=== PATIENT | female | born 1960 | race Caucasian/White ===

== ENCOUNTER 2025-07-29 09:54 | Outpatient (REF) | payer OTHER, SELFPAY ==
--- NOTE | 2025-07-29 | EMG_ITS ---
Chief complaint: Pain, numbness and itchy Referred by:?Loren Olson MD Procedure done: Left upper extremity NCS/EMG Left median and ulnar motor studies were performed with F responses. Left median and ulnar mixed sensory studies, ortho digit sensory studies and radial sensory study was performed. Paraspinals were tested with a needle. Findings: Left median motor distal latencies was mildly prolonged. Left median mixed distal latencies was moderately prolonged with moderate slowing of conduction velocity. Impression: [id number] left median neuropathy across carpal tunnel [place] [id number] 1 extremity MTDD
--- OUTSIDE RECORDS SUMMARY | 2025-07-29 11:10 | XMS_ITS | Data Portability ---
Author Organization [facility], Main Office Address [address] [place] [address] Care Team Providers Care Soil Sort Worker Name Role Phone GLEN HALEY Primary Care Provider EVIE SERRANO Degreaser Operator PRITESH HERNANDEZ Breast Surgeon Assessment Encounter Date Assessment Date Assessment LastModified by Organization Details LastModified Time 06/17/2025 06/17/2025 This service was provided using [facility] ([facility] The patient consented and was seen through audio only was used due to patient technology challenges. If audio only connection was used, the provider used telephone communication. Patient was located other than home in the [facility]. Provider was located in the office. No other persons participated in the telemedicine visit except for the patient unless otherwise indicated here. Total time of visit was 15 minutes. [email or web address] Not available 06/17/2025 09:04:35 Plan of Treatment Reminders Order Date Submit Date Provider Last Modified By Organization Details Last Modified Time Details Appointments None record ed. Lab HbA1c (hemog lobin A1c), blood 2024 025 [facility], [address] [place], [address], 5 08:07:15 lipid panel, serum 2024 025 [facility], [address], [place], [address], 5 08:07:14 CBC w/ auto diff 2024 025 CH[facility], [address], [place], [address], 5 08:07:12 TSH, ultra- sensit dameon, serum 2024 025 [facility], [address], [place], [address], 08:07:16 CMP, serum or plasma 2024 025 [facility] (Centralized Electronic Ordering - All Locations), Patient Can Go To The Location Of Their Choice, 08:07:13 pro BNP (pro B-type natriu retic peptid e), serum or plasma 2024 025 CHUY [facility] (Centralized Electronic Ordering - All Locations), Patient Can Go To The Location Of Their Choice, 08:07:16 urinal ysis comple te, reflex cultur e 2024 025 CHUY [facility] (Centralized Electronic Ordering - All Locations), Patient Can Go To The Location Of Their Choice, 08:07:13 noninv asive colore ctal cancer DNA + occult blood screen ing, QL, stool 2024 025 [facility], [address], [place], [address], 5 16:58:23 HbA1c (hemog lobin A1c), blood 2023 024 [facility], [address], [place], [address], 4 08:42:34 lipid panel, serum 2023 024 [facility], [address], [place], [address], 4 08:42:33 aspart ate aminot ransfe rase/a lanine aminot ransfe rase, ratio, serum or plasma (OBS) 2023 024 CHUY [facility] (Centralized Electronic Ordering - All Locations), Patient Can Go To The Location Of Their Choice, [id number] 4 06:08:46 BMP, serum or plasma 2023 024 [facility], [address], [place], [address], 4 06:08:45 CBC w/ auto diff 2023 024 [facility], [address], [place], [address], 4 06:08:44 TSH, ultra- sensit dameon, serum 2023 024 [facility], [address], [place], [address], 4 08:42:34 noninv asive colore ctal cancer DNA + occult blood screen ing, QL, stool 2023 024 [facility], [address], [address], [place], [address], 4 08:49:36 Referral occupa tional therap ist referr al 2024 Martha vargas Not available 5 13:47:03 sleep medici ne referr al 2024 025 [facility], [address] [place] [address], [address], 5 12:00:18 sleep medici ne referr al 2022 023 [facility], [address] [place] [address], [address], 3 12:09:19 Procedures None record ed. Surgeries None record ed. Imaging electr omyogr am + nerve conduc tion study - Left Hand 2024 025 [facility], [address] [place], [address], 5 15:01:01 XR, wrist, 3 or more view 2024 025 [facility], [address] [place] [address], [address], 5 16:26:46 CT, chest, w/ contra st - interv al follow up. pls try to do with Ct abdome n pelvis 2023 024 [facility], [address] [place] [address], [address], 4 13:52:48 CT, abdome n + pelvis , w/ contra st 2023 024 [facility], [address] [place] [address], [address], 4 14:07:59 Medication Orders meloxi cam 15 mg tablet [address] [id number], [phone] [place], [address], 5 05:01:42 meloxi cam 15 mg tablet [address] [facility] #[id number], [phone] [place], [address], 5 05:01:42 simvas tatin 20 mg tablet 2023 024 [facility], [facility], [place], [address], 4 13:57:54 azelas kristan 0.05 % eye drops 2022 023 [id number], [phone] [place], [address], 13:25:09 Patient TargetsNo targets recorded. Patient Instructions Encounter Date Encounter Id Patient Instructions Last Modified By Organization Details Last Modified Time 03/26/2024 [id number] snoring: care instructions [email or web address] Not available 03/26/2024 13:55:21 Colorectal Cance r Screening: Care Instructions ckokar Not available 03/26/2024 13:55:21 03/27/2025 [id number] leg and ankle edema: care instructions [email or web address] Not available 03/27/2025 10:54:46 snoring: care instructions ckokar Not available 03/27/2025 10:54:47 Colorectal Cance r Screening: Care Instructions ckokar Not available 03/27/2025 10:54:47 04/17/2025 [id number] carpal tunnel syndrome: care instructions ckokar Not available 04/17/2025 13:12:10 carpal tunnel syndrome: exercises ckokar Not available 04/17/2025 13:12:10 leg and ankle edema: care instructions ckokar Not available 04/17/2025 13:12:10 Reason for Referral Sleep Medicine Referral for Snoring Referring Physician: Haley Olson [facility] Medicine, Encounter Date: 04/06/2023 Sleep Medicine Referral for Snoring Referring Physician: Haley Olson [facility], Encounter Date: 03/27/2025 Occupational Therapist Refer ral for Carpal tunnel syndrome of left wrist Referring Physician: Haley Olson [facility] Medicine, Encounter Date: 04/17/2025 Results Created Date Observation Date Name Description Value Unit Range Abnormal Flag Note LastModifiedBy Organization Detail LastModifiedTime 03/26/2003/26/2025 COLOG UARD cologuard result Cancel led - Order d not applic able Not Available [facility] [address], [place], [address], 03/26/2025 05:24:35 01/03/20 24 01/03/2024 COLOG UARD cologuard result Cancel led - Order d not applic able Not Available [facility] [address], [place], [address], 01/03/2024 12:05:27 03/29/2003/29/2023 BASIC METAB OLIC PANEL glucose 141 mg/dL (70-99 ) high Not Available [facility] (Centralized Electronic Ordering - All Locations) Patient Can Go To The Location Of Their Choice, 03/29/2023 12:04:03/29/2003/29/2023 BASIC METAB OLIC PANEL BUN 13 mg/dL (8-23) Not Available [facility] (Centralized Electronic Ordering - All Locations) Patient Can Go To The Location Of Their Choice, 03/29/2023 12:04:03/29/2003/29/2023 BASIC METAB OLIC PANEL creatinine 0.8 mg/dL (0.5-1 .0) Not Available [facility] (Centralized Electronic Ordering - All Locations) Patient Can Go To The Location Of Their Choice, 03/29/2023 12:04:03/29/2003/29/2023 BASIC METAB OLIC PANEL sodium 142 mmol/ L (133-1 45) Not Available [facility] (Centralized Electronic Ordering - All Locations) Patient Can Go To The Location Of Their Choice, 03/29/2023 12:04:03/29/2003/29/2023 BASIC METAB OLIC PANEL potassium 4.5 mmol/ L (3.6-5 .2) Not Available [facility] (Centralized Electronic Ordering - All Locations) Patient Can Go To The Location Of Their Choice, 03/29/2023 12:04:03/29/2003/29/2023 BASIC METAB OLIC PANEL chloride 106 mmol/ L (98-10 7) Not Available [facility] (Centralized Electronic Ordering - All Locations) Patient Can Go To The Location Of Their Choice, 03/29/2023 12:04:03/29/2003/29/2023 BASIC METAB OLIC PANEL bicarbonate 24 mmol/ L (22-29 ) Not Available [facility] (Centralized Electronic Ordering - All Locations) Patient Can Go To The Location Of Their Choice, 03/29/2023 12:04:04 03/29/2003/29/2023 BASIC METAB OLIC PANEL anion gap 12 (4-17) Not Available [facility] (Centralized Electronic Ordering - All Locations) Patient Can Go To The Location Of Their Choice, 03/29/2023 12:04:04 03/29/2003/29/2023 BASIC METAB OLIC PANEL calcium 9.5 mg/dL (8.6-1 0.5) Not Available [facility] (Centralized Electronic Ordering - All Locations) Patient Can Go To The Location Of Their Choice, 03/29/2023 12:04:04 03/29/2003/29/2023 BASIC METAB OLIC PANEL estimated GFR creatinine 78 mL/mi n/1.7 3_M2 Creat inine based estim ated glome rular filtr ation (eGFR ) in adult s is calcu lated using the Natio nal Kidne y Found ation recom jhoana d 2020 CKD-E PI equat ion. Estim ates GFR from serum creat inine , age and sex. Not Available [facility] (Centralized Electronic Ordering - All Locations) Patient Can Go To The Location Of Their Choice, 03/29/2023 12:04:04 03/29/2003/29/2023 C-YULIYA CTIVE PROTE IN C-reactive protein <0.3 mg/dL (0-0.5 ) Not Available [facility] (Centralized Electronic Ordering - All Locations) Patient Can Go To The Location Of Their Choice, 03/29/2023 12:04:05 03/29/2003/29/2023 LIPID PANEL W REFLE X TO DLDL cholesterol, total 217 mg/dL (<200) high Not Available [facility] ([facility] - All Locations) Patient Can Go To The Location Of Their Choice, 03/29/2023 12:04:07 03/29/2003/29/2023 LIPID PANEL W REFLE X TO DLDL triglyceride s 123 mg/dL (<150) Not Available [facility] ([facility] Order[facility] - All Locations) Patient Can Go To The Location Of Their Choice, 03/29/2023 12:04:07 03/29/2003/29/2023 LIPID PANEL W REFLE X TO DLDL HDL chol 65 mg/dL (>39) Not Available [facility] (Centralized Electronic Ordering - All Locations) Patient Can Go To The Location Of Their Choice, 03/29/2023 12:04:03/29/2003/29/2023 LIPID PANEL W REFLE X TO DLDL LDL cholesterol, calculated 127 mg/dL (0-130 ) Not Available [facility] (Centralized Electronic Ordering - All Locations) Patient Can Go To The Location Of Their Choice, 03/29/2023 12:04:03/29/2003/29/2023 LIPID PANEL W REFLE X TO DLDL non HDL cholesterol (calc) 152 mg/dL (<160) Not Available [facility] ([facility] Ordering - All Locations) Patient Can Go To The Location Of Their Choice, 03/29/2023 12:04:03/29/2003/29/2023 LIPID PANEL W REFLE X TO DLDL cholesterol/ HDL ratio (calc) 3.3 (<5.0) Refer ence range for child maxwell have not been well estab lila d. Adult refer ence range is equal or less than 5 Not Available [facility] (Centralized Electronic Ordering - All Locations) Patient Can Go To The Location Of Their Choice, 03/29/2023 12:04:03/29/2003/29/2023 UA W/REF ABBEY CULTU RE appear/color YELLO W TURBI D Not Available [facility] (Centralized Electronic Ordering - All Locations) Patient Can Go To The Location Of Their Choice, 03/29/2023 12:10:03/29/2003/29/2023 UA W/REF ABBEY CULTU RE sp. gravity 1.025 (1.002 -1.030 ) Not Available [facility] (Centralized Electronic Ordering - All Locations) Patient Can Go To The Location Of Their Choice, 03/29/2023 12:10:03/29/2003/29/2023 UA W/REF ABBEY CULTU RE urine pH 6.0 (5.0-8 .0) Not Available [facility] (Centralized Electronic Ordering - All Locations) Patient Can Go To The Location Of Their Choice, 03/29/2023 12:10:26 03/29/2003/29/2023 UA W/REF ABBEY CULTU RE urine albumin 1+ (neg) abnormal Not Available [facility] ([facility] Ordering - All Locations) Patient Can Go To The Location Of Their Choice, 03/29/2023 12:10:03/29/2003/29/2023 UA W/REF ABBEY CULTU RE urine glucose NEGATI VE (neg) Not Available [facility] (Centralized Electronic Ordering - All Locations) Patient Can Go To The Location Of Their Choice, 03/29/2023 12:10:03/29/2003/29/2023 UA W/REF ABBEY CULTU RE urine ketones NEGATI VE (neg) Not Available [facility] (Centralized Electronic Ordering - All Locations) Patient Can Go To The Location Of Their Choice, 03/29/2023 12:10:03/29/2003/29/2023 UA W/REF ABBEY CULTU RE urine bilirubin NEGATI VE (neg) Not Available [facility] (Centralized Electronic Ordering - All Locations) Patient Can Go To The Location Of Their Choice, 03/29/2023 12:10:03/29/2003/29/2023 UA W/REF ABBEY CULTU RE urine hemoglobin NEGATI VE (neg) Not Available [facility] (Centralized Electronic Ordering - All Locations) Patient Can Go To The Location Of Their Choice, 03/29/2023 12:10:03/29/2003/29/2023 UA W/REF ABBEY CULTU RE urine nitrite NEGATI VE (neg) Not Available [facility] (Centralized Electronic Ordering - All Locations) Patient Can Go To The Location Of Their Choice, 03/29/2023 12:10:03/29/2003/29/2023 UA W/REF ABBEY CULTU RE urine leukocyte 2+ (neg) abnormal Not Available [facility] ([facility] Ordering - All Locations) Patient Can Go To The Location Of Their Choice, 03/29/2023 12:10:03/29/2003/29/2023 UA W/REF ABBEY CULTU RE urobilinogen NORMAL mg/dL (norm) Not Available [facility] ([facility] Locations) Patient Can Go To The Location Of Their Choice, 03/29/2023 12:10:03/29/2003/29/2023 UA W/REF ABBEY CULTU RE urine WBCs 15 /hpf (0-5) high Not Available [facility] (Centralized Electronic Ordering - All Locations) Patient Can Go To The Location Of Their Choice, 03/29/2023 12:10:03/29/2003/29/2023 UA W/REF ABBEY CULTU RE urine RBCs 2 /hpf (0-3) Not Available [facility] (Centralized Electronic Ordering - All Locations) Patient Can Go To The Location Of Their Choice, 03/29/2023 12:10:03/29/2003/29/2023 UA W/REF ABBEY CULTU RE bacteria MODERA TE hpf (neg) abnormal Not Available [facility] (Centralized Electronic Ordering - All Locations) Patient Can Go To The Location Of Their Choice, 03/29/2023 12:10:03/29/2003/29/2023 UA W/REF ABBEY CULTU RE mucus SLIGHT /lpf Not Available [facility] (Centralized Electronic Ordering - All Locations) Patient Can Go To The Location Of Their Choice, 03/29/2023 12:10:03/29/20 23 03/29/2023 UA W/REF ABBEY CULTU RE squamous epith 20 /hpf (0-8) high Not Available [facility] ([facility] Order[facility] - All Locations) Patient Can Go To The Location Of Their Choice, 03/29/2023 12:10:03/29/2003/29/2023 UA W/REF ABBEY CULTU RE budding yeast SLIGHT /hpf Not Available [facility] ([facility] Ordering - All Locations) Patient Can Go To The Location Of Their Choice, 03/29/2023 12:10:03/29/20 23 03/29/2023 UA W/REF ABBEY CULTU RE clarity TURBID (clear ) abnormal Not Available [facility] (Centralized Electronic Ordering - All Locations) Patient Can Go To The Location Of Their Choice, 03/29/2023 12:10:03/29/2003/29/2023 UA W/REF ABBEY CULTU RE culture indication CULTUR E INDICA DANIELA Not Available [facility] (Centralized Electronic Ordering - All Locations) Patient Can Go To The Location Of Their Choice, [id number] 03/29/2023 12:10:26 03/29/2003/29/2023 HEMOG LOBIN A1C hemoglobin A1C 6.0 % (4.0-5 .6) high MONIT ORING : In known diabe tic patie nts, hemog lobin A1c targe ts shoul d be discu ssed with healt h care provi tiara. DIAGN OSTIC USE: The Ameri can Diabe geovany Assoc iatio n (ADA) and the World Healt h Organ izati on (WHO) recom mend the use of HbA1c to diagn ose diabe geovany using a thres hold of 6.5%. Patie nts who have an HbA1c betwe en 5.7% and 6.4% are consi dered at incre ased risk for devel oping diabe geovany in the futur e. CAUTI ON: False ly low HbA1c resul ts may be obser jori in patie nts with hemol ytic anemi a, homoz ygous forms of abnor mal hemog lobin (e.g. SS, CC, SC), pregn mira, recen t blood loss or hemog lobin F great er than 7%. Fruct osami ne may be used as an alter mariah test in these cases . REFER ENCE: ADA: Stand ards of Medic al Care in Diabe geovany 2019, The Journ al of Clini rita and Appli ed Resea rch and Educa tion Volum e 43, Suppl ement 1 Not Available [facility] (Centralized Electronic Ordering - All Locations) Patient Can Go To The Location Of Their Choice, [id number] 03/29/2023 12:13:28 03/29/2003/29/2023 SEDIM ENTAT ION RATE, AUTOM ATED sedimentatio n rate,automat ed 24 mm/HR (0-20) high Not Available [facility] ([facility] Order[facility] - All Locations) Patient Can Go To The Location Of Their Choice, [id number] 03/29/2023 12:22:02 03/29/20 23 03/29/2023 HIV AB-AG 4TH GENER ATION result 4TH gen HIV Ab-Ag (neg) normal NEGAT DAMEON Negat dameon for antib odies to HIV 1 and HIV 2 and P24 antig en. Refer ence range : Negat dameon Addit ional note: Writt en patie nt autho rizat ion is requi red for each separ ate relea se of this test resul t. This test was perfo rmed on the Abbot t Archi tect immun oassa y syste m. Not Available [facility] (Centralized Electronic Ordering - All Locations) Patient Can Go To The Location Of Their Choice, 03/29/2023 19:06:24 03/29/20 23 03/29/2023 URINE CULTU RE specimen description URINE Not Available [facility]) Patient Can Go To The Location Of Their Choice, 03/30/2023 12:02:26 03/29/2003/29/2023 URINE CULTU RE special requests NONE Reflex ed from [id number] 2 Not Available [facility] (Centralized Electronic Ordering - All Locations) Patient Can Go To The Location Of Their Choice, 03/30/2023 12:02:26 03/29/2003/30/2023 URINE CULTU RE culture Mixed bacter ial ladarius, 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 Not Available [facility] (Centralized Electronic Ordering - All Locations) Patient Can Go To The Location Of Their Choice, 03/30/2023 12:02:26 03/29/2003/30/2023 URINE CULTU RE report status FINAL 2022 Not Available [facility] (Centralized Electronic Ordering - All Locations) Patient Can Go To The Location Of Their Choice, 03/30/2023 12:02:26 03/29/2003/29/2023 BLOOD CULTU RE specimen description BLOOD Not Available [facility] ([facility] Locations) Patient Can Go To The Location Of Their Choice, 04/03/2023 23:01:23 03/29/2003/29/2023 BLOOD CULTU RE special requests NONE Not Available [facility] ([facility] Order[facility] - All Locations) Patient Can Go To The Location Of Their Choice, 04/03/2023 23:01:23 03/29/20 23 04/03/2023 BLOOD CULTU RE culture NO GROWTH 5 DAYS. Not Available [facility] (Centralized Electronic Ordering - All Locations) Patient Can Go To The Location Of Their Choice, 04/03/2023 23:01:23 03/29/2004/03/2023 BLOOD CULTU RE report status FINAL 2022 Not Available [facility] (Centralized Electronic Ordering - All Locations) Patient Can Go To The Location Of Their Choice, 04/03/2023 23:01:23 03/29/2004/06/2023 QUANT IFERO N 1 TUBE qtb gold plus result NEGATI VE Refer ence range : NEGAT DAMEON (NOTE ) Negat dameon test resul t. M. tuber culos is compl ex infec tion unlik darrius. Not Available [facility] (Centralized Electronic Ordering - All Locations) Patient Can Go To The Location Of Their Choice, 04/06/2023 08:37:51 03/29/2004/06/2023 QUANT IFERO N 1 TUBE nil result 0.08 Unit: IU/mL Not Available [facility] (Centralized Electronic Ordering - All Locations) Patient Can Go To The Location Of Their Choice, 04/06/2023 08:37:51 03/29/20 23 04/06/2023 QUANT IFERO N 1 TUBE mitogen minus nil result >10.00 Unit: IU/mL Not Available [facility] (Centralized Electronic Ordering - All Locations) Patient Can Go To The Location Of Their Choice, 04/06/2023 08:37:51 03/29/20 23 04/06/2023 QUANT IFERO N 1 TUBE TB1 Ag minus nil result 0.00 Unit: IU/mL Not Available [facility] (Centralized Electronic Ordering - All Locations) Patient Can Go To The Location Of Their Choice, 04/06/2023 08:37:51 03/29/2004/06/2023 QUANT IFERO N 1 TUBE TB2 Ag minus nil result <0.00 Unit: IU/mL (NOTE ) = The Nil tube value refle cts the backg round inter feron gamma immun e respo nse of the patie nt's blood sampl e. This value has been subtr acted from the patie nt's displ ayed TB and Mitog en resul ts. = Lower than expec daniela resul ts with the Mitog en tube preve nt false -nega tive Quant ifero n readi ngs by detec ting a patie nt with a poten tial immun e suppr essiv e condi tion and/o r subop timal pre-a nalyt ical speci men handl ing. = The TB1 Antig en tube is coate d with the M. tuber culos is-sp ecifi c antig ens desig patience to elici t respo nses from TB antig en prime d CD4+ helpe r T-lym phocy geovany. = The TB2 Antig en tube is coate d with the M. tuber culos is-sp ecifi c antig ens desig patience to elici t respo nses from TB antig en prime d CD4+ helpe r and CD8+ cytot oxic T-lym phocy geovany. = For addit ional infor nena thompson, plelam e refer to https ://ed ucati on.qu estHundo/f aq/FA Q204 (This link is being provi ded for infor nena nal/ educa mandy l purpo ses only. ) = Test Perfo rmed by: [facility], [address], [place]. [address] . Labor atory Direc tor: Bro little MD. Not Available [facility] (Centralized Electronic Ordering - All Locations) Patient Can Go To The Location Of Their Choice, [id number] 04/06/2023 08:37:51 04/09/2004/09/2023 PERIO D & VOLUM E urine collection period 24 hrs Not Available [facility] ([facility] - All Locations) Patient Can Go To The Location Of Their Choice, 04/09/2023 14:18:19 04/09/2004/09/2023 PERIO D & VOLUM E volume 2000 mls Not Available [facility] (Centralized Electronic Ordering - All Locations) Patient Can Go To The Location Of Their Choice, 04/09/2023 14:18:19 04/09/20 23 04/09/2023 PERIO D & VOLUM E urine collection period 24 hrs Not Available [facility] ([facility] Order[facility] - All Locations) Patient Can Go To The Location Of Their Choice, 04/09/2023 14:18:28 04/09/20 23 04/09/2023 PERIO D & VOLUM E volume 2000 mls Not Available [facility] (Centralized Electronic Ordering - All Locations) Patient Can Go To The Location Of Their Choice, 04/09/2023 14:18:28 04/09/20 23 04/09/2023 PERIO D & VOLUM E urine collection period 24 hrs Not Available [facility] ([facility] Order[facility] - All Locations) Patient Can Go To The Location Of Their Choice, 04/09/2023 14:18:34 04/09/20 23 04/09/2023 PERIO D & VOLUM E volume 2000 mls Not Available [facility] (Centralized Electronic Ordering - All Locations) Patient Can Go To The Location Of Their Choice, 04/09/2023 14:18:34 04/09/20 23 04/09/2023 5 HIAA QUANT ITATI VE, URINE total volume 2000 Not Available [facility] ([facility] - All Locations) Patient Can Go To The Location Of Their Choice, 04/12/2023 07:06:31 04/09/20 23 04/12/2023 5 HIAA QUANT ITATI VE, URINE 5hiaa, urine 1.7 Refer ence range : Undef ined Unit: mg/L (NOTE ) This test was devel oped and its perfo rmanc e makayla cteri stics deter mined by [facility]. It has not been clear ed or appro jori by the Food and Drug Admin istra tion. Not Available [facility] (Centralized Electronic Ordering - All Locations) Patient Can Go To The Location Of Their Choice, 04/12/2023 07:06:31 04/09/20 23 04/12/2023 5 HIAA QUANT ITATI VE, URINE 5hiaa,urine 24HR 3.4 Refer ence range : 0.0 to 14.9 Unit: mg/24 hr Test perfo rmed at [facility] , [address] [place] [address] , [place] [address] Not Available [facility] (Centralized Electronic Ordering - All Locations) Patient Can Go To The Location Of Their Choice, 04/12/2023 07:06:31 04/09/20 23 04/09/2023 CATEC HOLAM INE, FRACT , 24 HR UR total volume 1999 Not Available [facility] ([facility] Order[facility] - All Locations) Patient Can Go To The Location Of Their Choice, 04/12/2023 17:06:18 04/09/20 23 04/12/2023 CATEC HOLAM INE, FRACT , 24 HR UR epinephrine, urine 2 Refer ence range : Undef ined Unit: ug/L (NOTE ) This test was devel oped and its perfo rmanc e makayla cteri stics deter mined by [facility]. It has not been clear ed or appro jori by the Food and Drug Admin istra tion. Not Available [facility] (Centralized Electronic Ordering - All Locations) Patient Can Go To The Location Of Their Choice, 04/12/2023 17:06:18 04/09/20 23 04/12/2023 CATEC HOLAM INE, FRACT , 24 HR UR epinephrine, ur quant 4 Refer ence range : 0 to 20 Unit: ug/24 hr Not Available [facility] (Centralized Electronic Ordering - All Locations) Patient Can Go To The Location Of Their Choice, 04/12/2023 17:06:18 04/09/20 23 04/12/2023 CATEC HOLAM INE, FRACT , 24 HR UR norepinephri ne, urine 23 Refer ence range : Undef ined Unit: ug/L (NOTE ) This test was devel oped and its perfo rmanc e makayla cteri stics deter mined by [facility]. It has not been clear ed or appro jori by the Food and Drug Admin istra tion. Not Available [facility] (Centralized Electronic Ordering - All Locations) Patient Can Go To The Location Of Their Choice, 04/12/2023 17:06:18 04/09/20 23 04/12/2023 CATEC HOLAM INE, FRACT , 24 HR UR norepinephri ne, ur quant 46 Refer ence range : 0 to 135 Unit: ug/24 hr Not Available [facility] (Centralized Electronic Ordering - All Locations) Patient Can Go To The Location Of Their Choice, 04/12/2023 17:06:18 04/09/20 23 04/12/2023 CATEC HOLAM INE, FRACT , 24 HR UR dopamine, urine 119 Refer ence range : Undef ined Unit: ug/L (NOTE ) This test was devel oped and its perfo rmanc e makayla cteri stics deter mined by [facility]. It has not been clear ed or appro jori by the Food and Drug Admin istra tion. Not Available [facility] (Centralized Electronic Ordering - All Locations) Patient Can Go To The Location Of Their Choice, 04/12/2023 17:06:18 04/09/20 23 04/12/2023 CATEC HOLAM INE, FRACT , 24 HR UR dopamine, ur quant 238 Refer ence range : 0 to 510 Unit: ug/24 hr Test perfo rmed at [facility] elena , [address] [place] [address] , [place] [address] Not Available [facility] (Centralized Electronic Ordering - All Locations) Patient Can Go To The Location Of Their Choice, 04/12/2023 17:06:18 04/09/2004/09/2023 UR METAN EPHRI BELIA total volume 2000 Not Available [facility] (Centralized Electronic Ordering - All Locations) Patient Can Go To The Location Of Their Choice, 04/12/2023 18:08:03 04/09/20 23 04/12/2023 UR METAN EPHRI BELIA metanephrine s, urine 60 Refer ence range : Undef ined Unit: ug/L (NOTE ) This test was devel oped and its perfo rmanc e makayla cteri stics deter mined by [facility]. It has not been clear ed or appro jori by the Food and Drug Admin istra tion. Not Available [facility] (Centralized Electronic Ordering - All Locations) Patient Can Go To The Location Of Their Choice, 04/12/2023 18:08:03 04/09/20 23 04/12/2023 UR METAN EPHRI BELIA metanephrine s, quant 120 Refer ence range : 36 to 209 Unit: ug/24 hr Not Available [facility] (Centralized Electronic Ordering - All Locations) Patient Can Go To The Location Of Their Choice, 04/12/2023 18:08:03 04/09/20 23 04/12/2023 UR METAN EPHRI BELIA normetanephr young, urine 169 Refer ence range : Undef ined Unit: ug/L (NOTE ) This test was devel oped and its perfo rmanc e makayla cteri stics deter mined by [facility]. It has not been clear ed or appro jori by the Food and Drug Admin istra tion. Not Available [facility] (Centralized Electronic Ordering - All Locations) Patient Can Go To The Location Of Their Choice, [id number] 04/12/2023 18:08:03 04/09/20 23 04/12/2023 UR METAN EPHRI BELIA normetanephr young, quant 338 Refer ence range : 131 to 612 Unit: ug/24 hr Test perfo rmed at [facility] elena , [address] [place] [address] , [place] [address] Not Available [facility] (Centralized Electronic Ordering - All Locations) Patient Can Go To The Location Of Their Choice, [id number] 04/12/2023 18:08:03 07/03/20 24 07/03/2024 CBC WITH DIFFE RENTI AL/PL ATELE T WBC 10.4 x10e3 /uL 3.4-10 .8 normal Not Available [facility] ([facility]) [address] [place], [address], 07/04/2024 06:08:44 07/03/20 24 07/03/2024 CBC WITH DIFFE RENTI AL/PL ATELE T RBC 4.76 x10e6 /uL 3.77-5 .28 normal Not Available [facility] ([facility]) [address] [place], [address], 07/04/2024 06:08:44 07/03/20 24 07/03/2024 CBC WITH DIFFE RENTI AL/PL ATELE T hemoglobin 13.8 g/dL 11.1-1 5.9 normal Not Available [facility] ([facility]) [address] [place], [address], 07/04/2024 06:08:44 07/03/20 24 07/03/2024 CBC WITH DIFFE RENTI AL/PL ATELE T hematocrit 43.2 % 34.0-4 6.6 normal Not Available [facility] ([facility]) [address] [facility], [place], [address], 07/04/2024 06:08:44 07/03/20 24 07/03/2024 CBC WITH DIFFE RENTI AL/PL ATELE T MCV 91 fL 79-97 normal Not Available [facility] ([facility]) [address] [facility], [place], [address], 07/04/2024 06:08:44 07/03/20 24 07/03/2024 CBC WITH DIFFE RENTI AL/PL ATELE T MCH 29.0 pg 26.6-3 3.0 normal Not Available [facility] ([facility]) [address] [facility], [place], [address], 07/04/2024 06:08:44 07/03/20 24 07/03/2024 CBC WITH DIFFE RENTI AL/PL ATELE T MCHC 31.9 g/dL 31.5-3 5.7 normal Not Available [facility] ([facility]) [address] [facility], [place], [address], 07/04/2024 06:08:44 07/03/20 24 07/03/2024 CBC WITH DIFFE RENTI AL/PL ATELE T RDW 12.1 % 11.7-1 5.4 Not Available [facility] ([facility]) [address] [facility], [place], [address], 07/04/2024 06:08:44 07/03/20 24 07/03/2024 CBC WITH DIFFE RENTI AL/PL ATELE T platelets 255 x10e3 /uL 150-45 0 normal Not Available [facility] ([facility]) [address] [place], [address], 07/04/2024 06:08:44 07/03/20 24 07/03/2024 CBC WITH DIFFE RENTI AL/PL ATELE T neutrophils 78 % not estab. normal Not Available [facility] ([facility]) [address] [facility], [place], [address], 07/04/2024 06:08:44 07/03/20 24 07/03/2024 CBC WITH DIFFE RENTI AL/PL ATELE T lymphs 12 % not estab. normal Not Available [facility] ([facility]) [address] [facility], [place], [address], 07/04/2024 06:08:44 07/03/20 24 07/03/2024 CBC WITH DIFFE RENTI AL/PL ATELE T monocytes 9 % not estab. normal Not Available [facility] ([facility]) [address] [facility], [place], [address], 07/04/2024 06:08:44 07/03/20 24 07/03/2024 CBC WITH DIFFE RENTI AL/PL ATELE T eos 1 % not estab. normal Not Available [facility] ([facility]) [address] [facility], [place], [address], 07/04/2024 06:08:44 07/03/20 24 07/03/2024 CBC WITH DIFFE RENTI AL/PL ATELE T basos 0 % not estab. normal Not Available [facility] ([facility]) [address] [facility], [place], [address], 07/04/2024 06:08:44 07/03/20 24 07/03/2024 CBC WITH DIFFE RENTI AL/PL ATELE T immature cells FORM STRIPPER Not Available [facility] ([facility]) [address] [facility], [place], [address], 07/04/2024 06:08:44 07/03/20 24 07/03/2024 CBC WITH DIFFE RENTI AL/PL ATELE T neutrophils (absolute) 8.1 x10e3 /uL 1.4-7. 0 above high normal Not Available [facility] ([facility]) [address] [place], [address], 07/04/2024 06:08:44 07/03/20 24 07/03/2024 CBC WITH DIFFE RENTI AL/PL ATELE T lymphs (absolute) 1.3 x10e3 /uL 0.7-3. 1 normal Not Available [facility] ([facility]) [address] [facility], [place], [address], 07/04/2024 06:08:44 07/03/20 24 07/03/2024 CBC WITH DIFFE RENTI AL/PL ATELE T monocytes(ab solute) 0.9 x10e3 /uL 0.1-0. 9 normal Not Available [facility] ([facility]) [address] [place], [address], 07/04/2024 06:08:44 07/03/20 24 07/03/2024 CBC WITH DIFFE RENTI AL/PL ATELE T eos (absolute) 0.1 x10e3 /uL 0.0-0. 4 normal Not Available [facility] ([facility]) [address] [place], [address], 07/04/2024 06:08:44 07/03/20 24 07/03/2024 CBC WITH DIFFE RENTI AL/PL ATELE T baso (absolute) 0.0 x10e3 /uL 0.0-0. 2 normal Not Available [facility] ([facility]) [address] [facility], [place], [address], 07/04/2024 06:08:44 07/03/20 24 07/03/2024 CBC WITH DIFFE RENTI AL/PL ATELE T immature granulocytes 0 % not estab. Not Available [facility] ([facility]) [address] [place], [address], 07/04/2024 06:08:44 07/03/20 24 07/03/2024 CBC WITH DIFFE RENTI AL/PL ATELE T immature grans (abs) 0.0 x10e3 /uL 0.0-0. 1 Not Available [facility] ([facility]) [address] [place], [address], 07/04/2024 06:08:44 07/03/20 24 07/03/2024 CBC WITH DIFFE RENTI AL/PL ATELE T NRBC FORM STRIPPER Not Available [facility] ([facility]) [address] [place], [address], 07/04/2024 06:08:44 07/03/20 24 07/03/2024 CBC WITH DIFFE RENTI AL/PL ATELE T hematology comments: FORM STRIPPER Not Available [facility] ([facility]) [address] [place], [address], 07/04/2024 06:08:44 07/03/20 24 07/04/2024 BASIC METAB OLIC PANEL (8) glucose 116 mg/dL 70-99 above high normal Not Available [facility] ([facility]) [address] [place], [address], 07/04/2024 06:08:45 07/03/20 24 07/04/2024 BASIC METAB OLIC PANEL (8) BUN 12 mg/dL 8-27 normal Not Available [facility] ([facility]) [address] [place], [address], 07/04/2024 06:08:45 07/03/20 24 07/04/2024 BASIC METAB OLIC PANEL (8) creatinine 0.81 mg/dL 0.57-1 .00 normal Not Available [facility] ([facility]) [address] [facility] [place], [address], 07/04/2024 06:08:45 07/03/20 24 07/04/2024 BASIC METAB OLIC PANEL (8) eGFR 81 mL/mi n/1.7 3 >59 normal Not Available [facility] ([facility]) [address] [facility] [place] [place], [address], 07/04/2024 06:08:45 07/03/20 24 07/04/2024 BASIC METAB OLIC PANEL (8) BUN/creatini ne ratio 15 12-28 normal Not Available [facility] ([facility]) [address] [place], [address], 07/04/2024 06:08:45 07/03/20 24 07/04/2024 BASIC METAB OLIC PANEL (8) sodium 140 mmol/ L 134-14 4 normal Not Available [facility] ([facility]) [address] [place], [address], 07/04/2024 06:08:45 07/03/20 24 07/04/2024 BASIC METAB OLIC PANEL (8) potassium 4.6 mmol/ L 3.5-5. 2 normal Not Available [facility] ([facility]) [address] [place], [address], 07/04/2024 06:08:45 07/03/20 24 07/04/2024 BASIC METAB OLIC PANEL (8) chloride 102 mmol/ L 96-106 normal Not Available [facility] ([facility]) [address] [place], [address], 07/04/2024 06:08:45 07/03/20 24 07/04/2024 BASIC METAB OLIC PANEL (8) carbon dioxide, total 21 mmol/ L 20-29 normal Not Available [facility] ([facility]) [address] [place], [address], 07/04/2024 06:08:45 07/03/20 24 07/04/2024 BASIC METAB OLIC PANEL (8) calcium 9.7 mg/dL 8.7-10 .3 normal Not Available [facility] ([facility]) [address] [place], [address], 07/04/2024 06:08:45 07/03/20 24 07/04/2024 LIPID PANEL cholesterol, total 205 mg/dL 100-19 9 above high normal Not Available [facility] ([facility]) [address] [facility] [place] [place], [address], 07/04/2024 06:08:46 07/03/20 24 07/04/2024 LIPID PANEL triglyceride s 134 mg/dL 0-149 normal Not Available [facility] ([facility]) [address] [facility] [place] [place], [address], 07/04/2024 06:08:46 07/03/20 24 07/04/2024 LIPID PANEL HDL cholesterol 63 mg/dL >39 normal Not Available [facility] ([facility]) [address] [facility] [place] [place], [address], 07/04/2024 06:08:46 07/03/20 24 07/04/2024 LIPID PANEL VLDL cholesterol rita 24 mg/dL 5-40 Not Available [facility] ([facility]) [address] [facility], [place], [address], 07/04/2024 06:08:46 07/03/20 24 07/04/2024 LIPID PANEL LDL chol calc ([facility]) 118 mg/dL 0-99 above high normal Not Available [facility] ([facility]) [address] [facility], [place], [address], 07/04/2024 06:08:46 07/03/20 24 07/04/2024 LIPID PANEL LDL calc comment: FORM STRIPPER Not Available [facility] ([facility]) [address] [facility], [place], [address], 07/04/2024 06:08:46 07/03/20 24 07/04/2024 ALT+A ST AST (SGOT) 24 IU/L 0-40 normal Not Available [facility] ([facility]) [address] [facility] [place] [place], [address], 07/04/2024 06:08:46 07/03/20 24 07/04/2024 ALT+A ST ALT (SGPT) 27 IU/L 0-32 normal Not Available [facility] ([facility]) [address] [facility], [place], [address], 07/04/2024 06:08:46 07/03/20 24 07/04/2024 HEMOG LOBIN A1C hemoglobin A1C 6.2 % 4.8-5. 6 above high normal Predi abete s: 5.7 - 6.4 Diabe geovany: >6.4 Glyce fernando contr ol for adult s with diabe geovany: <7.0 Not Available [facility] ([facility]) [address] [facility], [place], [address], 07/04/2024 06:08:47 07/03/20 24 07/04/2024 TSH RFX ON ABNOR MAL TO FREE T4 TSH 1.520 uIU/m L 0.450- 4.500 normal Not Available [facility] ([facility]) [address] [place], [address], 07/04/2024 06:08:48 04/10/20 25 04/10/2025 CBC WITH DIFFE RENTI AL/PL ATELE T WBC 5.7 x10e3 /uL 3.4-10 .8 normal Not Available [facility] ([facility]) [address] [place], [address], 04/11/2025 08:07:12 04/10/20 25 04/10/2025 CBC WITH DIFFE RENTI AL/PL ATELE T RBC 4.46 x10e6 /uL 3.77-5 .28 normal Not Available [facility] ([facility]) [address] [place], [address], 04/11/2025 08:07:12 04/10/20 25 04/10/2025 CBC WITH DIFFE RENTI AL/PL ATELE T hemoglobin 12.9 g/dL 11.1-1 5.9 normal Not Available [facility] ([facility]) [address] [place], [address], 04/11/2025 08:07:12 04/10/20 25 04/10/2025 CBC WITH DIFFE RENTI AL/PL ATELE T hematocrit 40.8 % 34.0-4 6.6 normal Not Available [facility] ([facility]) [address] [facility], [place], [address], 04/11/2025 08:07:12 04/10/20 25 04/10/2025 CBC WITH DIFFE RENTI AL/PL ATELE T MCV 92 fL 79-97 normal Not Available [facility] ([facility]) [address] [facility], [place], [address], 04/11/2025 08:07:12 04/10/20 25 04/10/2025 CBC WITH DIFFE RENTI AL/PL ATELE T MCH 28.9 pg 26.6-3 3.0 normal Not Available [facility] ([facility]) [address] [facility], [place], [address], 04/11/2025 08:07:12 04/10/20 25 04/10/2025 CBC WITH DIFFE RENTI AL/PL ATELE T MCHC 31.6 g/dL 31.5-3 5.7 normal Not Available [facility] ([facility]) [address] [facility], [place], [address], 04/11/2025 08:07:12 04/10/2004/10/2025 CBC WITH DIFFE RENTI AL/PL ATELE T RDW 12.2 % 11.7-1 5.4 Not Available [facility] ([facility]) [address] [place], [address], 04/11/2025 08:07:12 04/10/20 25 04/10/2025 CBC WITH DIFFE RENTI AL/PL ATELE T platelets 242 x10e3 /uL 150-45 0 normal Not Available [facility] ([facility]) [address] [place], [address], 04/11/2025 08:07:12 04/10/20 25 04/10/2025 CBC WITH DIFFE RENTI AL/PL ATELE T neutrophils 62 % not estab. normal Not Available [facility] ([facility]) [address] [facility], [place], [address], 04/11/2025 08:07:12 04/10/20 25 04/10/2025 CBC WITH DIFFE RENTI AL/PL ATELE T lymphs 24 % not estab. normal Not Available [facility] ([facility]) [address] [facility], [place], [address], 04/11/2025 08:07:12 04/10/20 25 04/10/2025 CBC WITH DIFFE RENTI AL/PL ATELE T monocytes 12 % not estab. normal Not Available [facility] ([facility]) [address] [facility], [place], [address], 04/11/2025 08:07:12 04/10/20 25 04/10/2025 CBC WITH DIFFE RENTI AL/PL ATELE T eos 2 % not estab. normal Not Available [facility] ([facility]) [address] [facility], [place], [address], 04/11/2025 08:07:12 04/10/20 25 04/10/2025 CBC WITH DIFFE RENTI AL/PL ATELE T basos 0 % not estab. normal Not Available [facility] ([facility]) [address] [facility], [place], [address], 04/11/2025 08:07:12 04/10/20 25 04/10/2025 CBC WITH DIFFE RENTI AL/PL ATELE T immature cells FORM STRIPPER Not Available [facility] ([facility]) [address] [place], [address], 04/11/2025 08:07:12 04/10/20 25 04/10/2025 CBC WITH DIFFE RENTI AL/PL ATELE T neutrophils (absolute) 3.5 x10e3 /uL 1.4-7. 0 normal Not Available [facility] ([facility]) [address] [facility], [place], [address], 04/11/2025 08:07:12 04/10/20 25 04/10/2025 CBC WITH DIFFE RENTI AL/PL ATELE T lymphs (absolute) 1.4 x10e3 /uL 0.7-3. 1 normal Not Available [facility] ([facility]) [address] [facility], [place], [address], 04/11/2025 08:07:12 04/10/20 25 04/10/2025 CBC WITH DIFFE RENTI AL/PL ATELE T monocytes(ab solute) 0.7 x10e3 /uL 0.1-0. 9 normal Not Available [facility] ([facility]) [address] [place], [address], 04/11/2025 08:07:12 04/10/20 25 04/10/2025 CBC WITH DIFFE RENTI AL/PL ATELE T eos (absolute) 0.1 x10e3 /uL 0.0-0. 4 normal Not Available [facility] ([facility]) [address] [place], [address], 04/11/2025 08:07:12 04/10/20 25 04/10/2025 CBC WITH DIFFE RENTI AL/PL ATELE T baso (absolute) 0.0 x10e3 /uL 0.0-0. 2 normal Not Available [facility] ([facility]) [address] [place], [address], 04/11/2025 08:07:12 04/10/20 25 04/10/2025 CBC WITH DIFFE RENTI AL/PL ATELE T immature granulocytes 0 % not estab. Not Available [facility] ([facility]) [address] [place], [address], 04/11/2025 08:07:12 04/10/20 25 04/10/2025 CBC WITH DIFFE RENTI AL/PL ATELE T immature grans (abs) 0.0 x10e3 /uL 0.0-0. 1 Not Available [facility] ([facility]) [address] [facility], [place], [address], 04/11/2025 08:07:12 04/10/20 25 04/10/2025 CBC WITH DIFFE RENTI AL/PL ATELE T NRBC FORM STRIPPER Not Available [facility] ([facility]) [address] [facility], [place], [address], 04/11/2025 08:07:12 04/10/20 25 04/10/2025 CBC WITH DIFFE RENTI AL/PL ATELE T hematology comments: FORM STRIPPER Not Available [facility] ([facility]) [address] [facility], [place], [address], 04/11/2025 08:07:12 04/10/20 25 04/10/2025 COMP. METAB OLIC PANEL (14) glucose 112 mg/dL 70-99 above high normal Not Available [facility] ([facility]) [address] [facility], [place], [address], 04/11/2025 08:07:13 04/10/20 25 04/10/2025 COMP. METAB OLIC PANEL (14) BUN 15 mg/dL 8-27 normal Not Available [facility] ([facility]) [address] [facility], [place], [address], 04/11/2025 08:07:13 04/10/20 25 04/10/2025 COMP. METAB OLIC PANEL (14) creatinine 0.78 mg/dL 0.57-1 .00 normal Not Available [facility] ([facility]) [address] [facility], [place], [address], 04/11/2025 08:07:13 04/10/20 25 04/10/2025 COMP. METAB OLIC PANEL (14) eGFR 84 mL/mi n/1.7 3 >59 normal Not Available [facility] ([facility]) [address] [facility] [place] [place], [address], 04/11/2025 08:07:13 04/10/20 25 04/10/2025 COMP. METAB OLIC PANEL (14) BUN/creatini ne ratio 19 12-28 normal Not Available [facility] ([facility]) [address] [facility] [place] [place], [address], 04/11/2025 08:07:13 04/10/20 25 04/10/2025 COMP. METAB OLIC PANEL (14) sodium 141 mmol/ L 134-14 4 normal Not Available [facility] ([facility]) [address] [facility] [place] [place], [address], 04/11/2025 08:07:13 04/10/20 25 04/10/2025 COMP. METAB OLIC PANEL (14) potassium 4.6 mmol/ L 3.5-5. 2 normal Not Available [facility] ([facility]) [address] [facility] [place] [place], [address], 04/11/2025 08:07:13 04/10/20 25 04/10/2025 COMP. METAB OLIC PANEL (14) chloride 107 mmol/ L 96-106 above high normal Not Available [facility] ([facility]) [address] [facility] [place] [place], [address], 04/11/2025 08:07:13 04/10/20 25 04/10/2025 COMP. METAB OLIC PANEL (14) carbon dioxide, total 19 mmol/ L 20-29 below low normal Not Available [facility] ([facility]) [address] [facility] [place] [place], [address], 04/11/2025 08:07:13 04/10/20 25 04/10/2025 COMP. METAB OLIC PANEL (14) calcium 9.2 mg/dL 8.7-10 .3 normal Not Available [facility] ([facility]) [address] [place], [address], 04/11/2025 08:07:13 04/10/20 25 04/10/2025 COMP. METAB OLIC PANEL (14) ALT (SGPT) 21 IU/L 0-32 normal Not Available [facility] ([facility]) [address] [place], [address], 04/11/2025 08:07:13 04/10/20 25 04/11/2025 COMP. METAB OLIC PANEL (14) protein, total 6.5 g/dL 6.0-8. 5 normal Not Available [facility] ([facility]) [address] [place], [address], 04/11/2025 08:07:13 04/10/20 25 04/11/2025 COMP. METAB OLIC PANEL (14) albumin 4.4 g/dL 3.9-4. 9 normal Not Available [facility] ([facility]) [address] [place], [address], 04/11/2025 08:07:13 04/10/20 25 04/11/2025 COMP. METAB OLIC PANEL (14) globulin, total 2.1 g/dL 1.5-4. 5 Not Available [facility] ([facility]) [address] [place], [address], 04/11/2025 08:07:13 04/10/20 25 04/11/2025 COMP. METAB OLIC PANEL (14) bilirubin, total 0.5 mg/dL 0.0-1. 2 normal Not Available [facility] ([facility]) [address] [place], [address], 04/11/2025 08:07:13 04/10/20 25 04/11/2025 COMP. METAB OLIC PANEL (14) alkaline phosphatase 66 IU/L 44-121 normal Not Available [facility] ([facility]) [address], [place], [address], 04/11/2025 08:07:13 04/10/20 25 04/11/2025 COMP. METAB OLIC PANEL (14) AST (SGOT) 22 IU/L 0-40 normal Not Available [facility] ([facility]) [address], [place], [address], 04/11/2025 08:07:13 04/10/20 25 04/10/2025 UA/M W/RFL X CULTU RE, ROUTI NE specific gravity 1.015 1.005- 1.030 normal Not Available [facility] ([facility]) [address], [place], [address], 04/11/2025 08:07:13 04/10/20 25 04/10/2025 UA/M W/RFL X CULTU RE, ROUTI NE pH 5.5 5.0-7. 5 normal Not Available [facility] ([facility]) [address], [place], [address], 04/11/2025 08:07:13 04/10/20 25 04/10/2025 UA/M W/RFL X CULTU RE, ROUTI NE urine-color Yellow yellow Not Available [facility] ([facility]) [address], [place], [address], 04/11/2025 08:07:13 04/10/20 25 04/10/2025 UA/M W/RFL X CULTU RE, ROUTI NE appearance Clear clear Not Available [facility] ([facility]) [address], [place], [address], 04/11/2025 08:07:13 04/10/20 25 04/10/2025 UA/M W/RFL X CULTU RE, ROUTI NE WBC esterase Negati ve negati ve Not Available [facility] ([facility]) [address], [place], [address], 04/11/2025 08:07:13 04/10/20 25 04/10/2025 UA/M W/RFL X CULTU RE, ROUTI NE protein Negati ve negati ve/tra ce Not Available [facility] ([facility]) [address] [place], [address], 04/11/2025 08:07:13 04/10/20 25 04/10/2025 UA/M W/RFL X CULTU RE, ROUTI NE glucose Negati ve negati ve Not Available [facility] ([facility]) [address] [place], [address], 04/11/2025 08:07:13 04/10/20 25 04/10/2025 UA/M W/RFL X CULTU RE, ROUTI NE ketones Negati ve negati ve Not Available [facility] ([facility]) [address] [place], [address], 04/11/2025 08:07:13 04/10/20 25 04/10/2025 UA/M W/RFL X CULTU RE, ROUTI NE occult blood Negati ve negati ve Not Available [facility] ([facility]) [address] [place], [address], 04/11/2025 08:07:13 04/10/20 25 04/10/2025 UA/M W/RFL X CULTU RE, ROUTI NE bilirubin Negati ve negati ve Not Available [facility] ([facility]) [address] [place], [address], 04/11/2025 08:07:13 04/10/20 25 04/10/2025 UA/M W/RFL X CULTU RE, ROUTI NE urobilinogen ,semi-qn 0.2 mg/dL 0.2-1. 0 normal Not Available [facility] ([facility]) [address] [place], [address], 04/11/2025 08:07:13 04/10/20 25 04/10/2025 UA/M W/RFL X CULTU RE, ROUTI NE nitrite, urine Negati ve negati ve Not Available [facility] ([facility]) [address] [facility], [place], [address], 04/11/2025 08:07:13 04/10/20 25 04/10/2025 UA/M W/RFL X CULTU RE, ROUTI NE microscopic examination Commen t Micro scopi c follo ws if indic ated. Not Available [facility] ([facility]) [address] [facility], [place], [address], 04/11/2025 08:07:13 04/10/20 25 04/10/2025 UA/M W/RFL X CULTU RE, ROUTI NE microscopic examination See below: Micro scopi c was indic ated and was perfo rmed. Not Available [facility] ([facility]) [address] [facility], [place], [address], 04/11/2025 08:07:13 04/10/20 25 04/11/2025 UA/M W/RFL X CULTU RE, ROUTI NE WBC None seen /hpf 0 - 5 Not Available [facility] ([facility]) [address] [facility], [place], [address], 04/11/2025 08:07:13 04/10/20 25 04/11/2025 UA/M W/RFL X CULTU RE, ROUTI NE RBC None seen /hpf 0 - 2 Not Available [facility] ([facility]) [address] [facility], [place], [address], 04/11/2025 08:07:13 04/10/20 25 04/11/2025 UA/M W/RFL X CULTU RE, ROUTI NE epithelial cells (non renal) 0-10 /hpf 0 - 10 Not Available [facility] ([facility]) [address] [facility], [place], [address], 04/11/2025 08:07:13 04/10/20 25 04/11/2025 UA/M W/RFL X CULTU RE ROUTI NE epithelial cells (renal) FORM STRIPPER Not Available [facility] ([facility]) [address] [facility], [place], [address], 04/11/2025 08:07:13 04/10/20 25 04/11/2025 UA/M W/RFL X CULTU RE, ROUTI NE casts None seen /lpf none seen Not Available [facility] ([facility]) [address] [facility], [place], [address], 04/11/2025 08:07:13 04/10/20 25 04/11/2025 UA/M W/RFL X CULTU RE, ROUTI NE cast type FORM STRIPPER Not Available [facility] ([facility]) [address] [facility], [place], [address], 04/11/2025 08:07:13 04/10/20 25 04/11/2025 UA/M W/RFL X CULTU RE, ROUTI NE crystals FORM STRIPPER Not Available [facility] ([facility]) [address] [facility], [place], [address], 04/11/2025 08:07:13 04/10/20 25 04/11/2025 UA/M W/RFL X CULTU RE, ROUTI NE crystal type FORM STRIPPER Not Available [facility] ([facility]) [address] [facility], [place], [address], 04/11/2025 08:07:13 04/10/20 25 04/11/2025 UA/M W/RFL X CULTU RE, ROUTI NE mucus threads FORM STRIPPER Not Available [facility] ([facility]) [address] [facility], [place], [address], 04/11/2025 08:07:13 04/10/20 25 04/11/2025 UA/M W/RFL X CULTU RE, ROUTI NE bacteria Few none seen/f ew Not Available [facility] ([facility]) [address] [facility], [place], [address], 04/11/2025 08:07:13 04/10/20 25 04/11/2025 UA/M W/RFL X CULTU RE, ROUTI NE yeast FORM STRIPPER Not Available [facility] ([facility]) [address] [facility], [place], [address], 04/11/2025 08:07:13 04/10/20 25 04/11/2025 UA/M W/RFL X CULTU RE, ROUTI NE trichomonas FORM STRIPPER Not Available [facility] ([facility]) [address] [facility], [place], [address], 04/11/2025 08:07:13 04/10/20 25 04/11/2025 UA/M W/RFL X CULTU RE, ROUTI NE comment FORM STRIPPER Not Available [facility] ([facility]) [address] [facility], [place], [address], 04/11/2025 08:07:13 04/10/20 25 04/11/2025 UA/M W/RFL X CULTU RE, ROUTI NE urinalysis reflex Commen t This speci men will not refle x to a Urine Cultu re. Not Available [facility] ([facility]) [address] [facility], [place], [address], 04/11/2025 08:07:13 04/10/20 25 04/11/2025 LIPID PANEL cholesterol, total 180 mg/dL 100-19 9 normal Not Available [facility] ([facility]) [address] [place], [address], 04/11/2025 08:07:14 04/10/20 25 04/11/2025 LIPID PANEL triglyceride s 95 mg/dL 0-149 normal Not Available [facility] ([facility]) [address] [place], [address], 04/11/2025 08:07:14 04/10/20 25 04/11/2025 LIPID PANEL HDL cholesterol 63 mg/dL >39 normal Not Available [facility] ([facility]) [address] [facility], [place], [address], 04/11/2025 08:07:14 04/10/20 25 04/11/2025 LIPID PANEL VLDL cholesterol rita 17 mg/dL 5-40 Not Available [facility] ([facility]) [address] [facility], [place], [address], 04/11/2025 08:07:14 04/10/20 25 04/11/2025 LIPID PANEL LDL chol calc ([facility]) 100 mg/dL 0-99 above high normal Not Available [facility] ([facility]) [address] [facility], [place], [address], 04/11/2025 08:07:14 04/10/20 25 04/11/2025 LIPID PANEL LDL calc comment: FORM STRIPPER Not Available [facility] ([facility]) [address] [facility], [place], [address], 04/11/2025 08:07:14 04/10/2004/11/2025 HEMOG LOBIN A1C hemoglobin A1C 5.9 % 4.8-5. 6 above high normal Predi abete s: 5.7 - 6.4 Diabe geovany: >6.4 Glyce fernando contr ol for adult s with diabe geovany: <7.0 Not Available [facility] ([facility]) [address] [facility], [place], [address], 04/11/2025 08:07:15 04/10/2004/11/2025 NT-SD OBNP nt-probnp 245 pg/mL 0-301 The follo wing cut-p oints have been sugge sted for the use of proBN P for the diagn ostic evalu ation of heart failu re (HF) in patie nts with acute dyspn ea: Modal ity Age Optim al Cut (year s) Point ----- ----- ----- ----- ----- ----- ----- ----- ----- ----- ---- Diagn osis (rule in HF) <50 450 pg/mL 50 - 75 900 pg/mL >75 1800 pg/mL Exclu gabino (rule out HF) Age indep enden t 300 pg/mL Not Available [facility] ([facility]) [address] [facility], [place], [address], 04/11/2025 08:07:15 04/10/20 25 04/11/2025 TSH RFX ON ABNOR MAL TO FREE T4 TSH 2.020 uIU/m L 0.450- 4.500 normal Not Available [facility] ([facility]) [address] [facility], [place], [address], 04/11/2025 08:07:16 04/15/20 24 04/15/2024 CT, chest , w/ contr ast No observ ation record ed. [facility] [address] [facility], [place], [address], 04/16/2024 17:20:05 04/15/20 24 04/15/2024 CT, abdom en + pelvi s, w/ contr ast CT Chest W/ Contra st, CT Abd/Pe lvis W/ IV + Oral Contra st Reason : SOLITA RY PULMON LEAH NODULE . TECHNI QUE: Helica l CT scan of the chest, abdome n, and pelvis with IV contra st, format daniela in 3 planes . 100 cc of Omnipa que 300 was admini stered intrav enousl y. This study was perfor med with oral contra st. Weight -based protoc ol was perfor med using automa tic exposu re contro l. CTDIvo l Body: 16.22 mGy, DLP Body: 1044 mGy*cm . COMPAR CHRISTIANA: CT chest 023. FINDIN GS: Sales Representative Education Courses view findin gs, lines and tubes: None. Trache a and airway s: Patent withou t eviden ce of trache al or endobr onchia l lesion . Lungs and pleura : All lung findin gs detail ed on series 3, unless otherw ise specif ied. * Mild bibasi lar atelec tasis. Few scatte red bilate ral pulmon leah cyst. * No effusi on or pneumo thorax . RIGHT: * Unchan ged apical nodule s measur ing up to 0.3 cm (13). * Unchan ged 0.5 cm nodule in the medial lower lobe (64). * Unchan ged are 0.7 cm ground glass nodule in the upper lobe (24). * Calcif ied granul remy in the upper lobe. * No new or enlarg ing right pulmon leah nodule s. LEFT * No left pulmon leah nodule s. Medias tinum and murali: No mass or hemato ma. No medias tinal or hilar lympha denopa thy. No esopha geal abnorm ality. Normal thyroi d. Heart: Heart is normal in size. No perica rdial effusi on. Mild melchor ry artery calcif icatio n. Aorta: Mild vascul ar calcif icatio n but no aneury sm. Incide ntally noted common origin of the brachi ocepha lic and left common caroti d arteri es, a normal varian t. Pulmon leah arteri es: Normal calibe r. No eviden ce of pulmon leah emboli sm on this study perfor med withou t angiog raphic techni que. Chest wall soft tissue s: No acute abnorm ality. Diaphr agm: Small left Bochda lek hernia . Liver: Diffus e low-at tenuat ion throug hout the liver parenc hyma consis tent with hepati c steato sis. No eviden ce of a suspic ious lesion . Gallbl adder: No CT eviden ce of gallbl adder pathol ogy. Bile ducts: No biliar y ductal dilati on. Spleen : Normal . Access ory spleni c tissue is incide ntally noted. Pancre as: Scatte red puncta te calcif icatio ns throug hout the pancre atic parenc hyma, may be sequel a of chroni c pancre atitis . No ductal dilata tion. No suspic ious lesion s. Adrena l glands : No nodule . Kidney s and ureter s: No hydron ephros is, stone, or suspic ious lesion . Small hypode nsitie s that are too small to charac terize are noted, requir ing no dedica daniela follow up. Bladde r: No wall thicke kerline or surrou nding strand ing. Reprod uctive organs : Unrema rkable . Stomac h, small bowel, and large bowel: Oral contra st reache s the mid transv erse colon. No agus lonic inflam matory strand ing or fluid collec tion. No eviden ce of small bowel obstru ction. Append ix: Normal append ix. Perito neum and retrop eriton eum: No ascite s or pneumo perito neum. No omenta l or mesent barbra lesion s. Lymph nodes: No enlarg ed lymph nodes. Blood vessel s: Mild vascul ar calcif icatio ns but no aneury sm. No eviden ce of venous thromb osis. Abdomi nal and pelvic wall soft tissue s: Fat-co ntaini ng umbili rita hernia . Bones: Questi onable buckli ng of the cortex of the distal right clavic le (2:1). Mild degene rative change s of visual ized spine. Unchan ged nonspe cific sclero tic focus in the latera l left rib #5 (2:36) . IMPRES GABINO: Unchan ged right pulmon leah nodule s includ ing a 0.7 cm ground glass nodule in the anteri or upper lobe. No new or enlarg ing pulmon leah nodule s. No acute findin gs in the abdome n or pelvis . Hepati c steato sis. Questi onable buckli ng of the cortex of the distal right clavic le. This is not comple tely imaged and may be artifa ctual. If there is clinic al concer n for a clavic ular injury , consid er assess ment with contra st radiog raphs. I have person ally review ed the images and I agree with this report . WSN: [id number] Orderi ng Physic an: Leslie Olson ai Dictat ed By: Buster mosley MD, Ivonne Pinto Dictat ed Date/T vargas: 1:43 pm Review ed By: Jarvis Blair MD Signed By: Jarvis Blair MD Signed Date/T vargas: 1:48 pm Transc ribed By: CHRISTOPHER Transc ribed Date/T vargas: 12:45 pm Patien t Class: Outpat ient [facility] (Outpt Imaging) [address], [place], [address], 04/16/2024 17:26:34 04/15/2004/15/2024 CT, chest , w/ contr ast CT Chest W/ Contra st, CT Abd/Pe lvis W/ IV + Oral Contra st Reason : SOLITA RY PULMON LEAH NODULE . TECHNI QUE: Helica l CT scan of the chest, abdome n, and pelvis with IV contra st, format daniela in 3 planes . 100 cc of Omnipa que 300 was admini stered intrav enousl y. This study was perfor med with oral contra st. Weight -based protoc ol was perfor med using automa tic exposu re contro l. CTDIvo l Body: 16.22 mGy, DLP Body: 1044 mGy*cm . COMPAR CHRISTIANA: CT chest 023. FINDIN GS: Sales Representative Education Courses view findin gs, lines and tubes: None. Trache a and airway s: Patent withou t eviden ce of trache al or endobr onchia l lesion . Lungs and pleura : All lung findin gs detail ed on series 3, unless otherw ise specif ied. * Mild bibasi lar atelec tasis. Few scatte red bilate ral pulmon leah cyst. * No effusi on or pneumo thorax . RIGHT: * Unchan ged apical nodule s measur ing up to 0.3 cm (13). * Unchan ged 0.5 cm nodule in the medial lower lobe (64). * Unchan ged are 0.7 cm ground glass nodule in the upper lobe (24). * Calcif ied granul remy in the upper lobe. * No new or enlarg ing right pulmon leah nodule s. LEFT * No left pulmon leah nodule s. Medias tinum and murali: No mass or hemato ma. No medias tinal or hilar lympha denopa thy. No esopha geal abnorm ality. Normal thyroi d. Heart: Heart is normal in size. No perica rdial effusi on. Mild melchor ry artery calcif icatio n. Aorta: Mild vascul ar calcif icatio n but no aneury sm. Incide ntally noted common origin of the brachi ocepha lic and left common caroti d arteri es, a normal varian t. Pulmon leah arteri es: Normal calibe r. No eviden ce of pulmon leah emboli sm on this study perfor med withou t angiog raphic techni que. Chest wall soft tissue s: No acute abnorm ality. Diaphr agm: Small left Bochda lek hernia . Liver: Diffus e low-at tenuat ion throug hout the liver parenc hyma consis tent with hepati c steato sis. No eviden ce of a suspic ious lesion . Gallbl adder: No CT eviden ce of gallbl adder pathol ogy. Bile ducts: No biliar y ductal dilati on. Spleen : Normal . Access ory spleni c tissue is incide ntally noted. Pancre as: Scatte red puncta te calcif icatio ns throug hout the pancre atic parenc hyma, may be sequel a of chroni c pancre atitis . No ductal dilata tion. No suspic ious lesion s. Adrena l glands : No nodule . Kidney s and ureter s: No hydron ephros is, stone, or suspic ious lesion . Small hypode nsitie s that are too small to charac terize are noted, requir ing no dedica daniela follow up. Bladde r: No wall thicke kerline or surrou nding strand ing. Reprod uctive organs : Unrema rkable . Stomac h, small bowel, and large bowel: Oral contra st reache s the mid transv erse colon. No agus lonic inflam matory strand ing or fluid collec tion. No eviden ce of small bowel obstru ction. Append ix: Normal append ix. Perito neum and retrop eriton eum: No ascite s or pneumo perito neum. No omenta l or mesent barbra lesion s. Lymph nodes: No enlarg ed lymph nodes. Blood vessel s: Mild vascul ar calcif icatio ns but no aneury sm. No eviden ce of venous thromb osis. Abdomi nal and pelvic wall soft tissue s: Fat-co ntaini ng umbili rita hernia . Bones: Questi onable buckli ng of the cortex of the distal right clavic le (2:1). Mild degene rative change s of visual ized spine. Unchan ged nonspe cific sclero tic focus in the latera l left rib #5 (2:36) . IMPRES GABINO: Unchan ged right pulmon leah nodule s includ ing a 0.7 cm ground glass nodule in the anteri or upper lobe. No new or enlarg ing pulmon leah nodule s. No acute findin gs in the abdome n or pelvis . Hepati c steato sis. Questi onable buckli ng of the cortex of the distal right clavic le. This is not comple tely imaged and may be artifa ctual. If there is clinic al concer n for a clavic ular injury , consid er assess ment with contra st radiog raphs. I have person ally review ed the images and I agree with this report . WSN: [id number] Orderi ng Physic an: Leslie Olson Dictat ed By: Ivonne Moffett MD Dictat ed Date/T vargas: 1:43 pm Review ed By: Jarvis Blair MD Signed By: Jarvis Blair MD Signed Date/T vargas: 1:48 pm Transc ribed By: CHRISTOPHER Transc ribed Date/T vargas: 12:45 pm Patien t Class: Outpat ient [facility] (Outpt Imaging) [address] [facility], [place], [address], 04/16/2024 17:26:35 04/20/2004/17/2025 XR, wrist , 3 or more view Wrist Comp Min 3 Views Left Reason : Carpal Tunnel syndro me COMPAR CHRISTIANA: None. FINDIN GS: No fractu re or disloc ation. Normal carpal config uratio n. Intact radial and ulnar styloi d proces ses. Modera te trisca phe osteoa rthrit is with joint space narrow ing. Modera te degene rative change at the first carpom etacar pal joint. Normal soft tissue s. IMPRES GABINO: Modera te trisca phe osteoa rthrit is. Modera te degene rative change at the first carpom etacar pal joint. I have person ally review ed the images and I agree with this report . WSN: [id number] Orderi ng Physic an: Leslie Olson Dictat ed By: Yael Bell DO Dictat ed Date/T vargas: 4:23 pm Review ed By: Ortega garcía MD, Tim Johnson Signed By: Ortega garcía MD, Tim Johnson Signed Date/T vargas: 4:28 pm Transc ribed By: CHRISTOPHER Transc ribed Date/T vargas: 4:16 pm Patien t Class: Outpat ient [facility] (Outpt Imaging) [address], [place], [address], 04/21/2025 17:03:40 04/20/2004/20/2025 XR, wrist , 3 or more view No observ ation record ed. [email or web address] [facility] [address], [address], 05/04/2025 14:40:23 Result Notes Documentation Provider Name and Address Organization Details Recorded Time Ct, Abdomen + Pelvis, W/ Contrast : CT Chest W/ Contrast, CT Abd/Pelvis W/ IV + Oral Contrast Reason: SOLITARY PULMONARY NODULE. TECHNIQUE: Helical CT scan of the chest, abdomen, and pelvis with IV contrast, formatted in 3 planes. 100 cc of Omnipaque 300 was administered intravenously. This study was performed with oral contrast. Weight-based protocol was performed using automatic exposure control. CTDIvol Body: 16.22 mGy, DLP Body: 1044 mGy*cm. COMPARISON: CT chest 10/09/2022. FINDINGS: Sales Representative Education Courses view findings, lines and tubes: None. Trachea and airways: Patent without evidence of tracheal or endobronchial lesion. Lungs and pleura: All lung findings detailed on series 3, unless otherwise specified. * Mild bibasilar atelectasis. Few scattered bilateral pulmonary cyst. * No effusion or pneumothorax. RIGHT: * Unchanged apical nodules measuring up to 0.3 cm (13). * Unchanged 0.5 cm nodule in the medial lower lobe (64). * Unchanged are 0.7 cm groundglass nodule in the upper lobe (24). * Calcified granuloma in the upper lobe. * No new or enlarging right pulmonary nodules. LEFT * No left pulmonary nodules. Mediastinum and murali: No mass or hematoma. No mediastinal or hilar lymphadenopathy. No esophageal abnormality. Normal thyroid. Heart: Heart is normal in size. No pericardial effusion. Mild coronary artery calcification. Aorta: Mild vascular calcification but no aneurysm. Incidentally noted common origin of the brachiocephalic and left common carotid arteries, a normal variant. Pulmonary arteries: Normal caliber. No evidence of pulmonary embolism on this study performed without angiographic technique. Chest wall soft tissues: No acute abnormality. Diaphragm: Small left Bochdalek hernia. Liver: Diffuse low-attenuation throughout the liver parenchyma consistent with hepatic steatosis. No evidence of a suspicious lesion. Gallbladder: No CT evidence of gallbladder pathology. Bile ducts: No biliary ductal dilation. Spleen: Normal. Accessory splenic tissue is incidentally noted. Pancreas: Scattered punctate calcifications throughout the pancreatic parenchyma, may be sequela of chronic pancreatitis. No ductal dilatation. No suspicious lesions. Adrenal glands: No nodule. Kidneys and ureters: No hydronephrosis, stone, or suspicious lesion. Small hypodensities that are too small to characterize are noted, requiring no dedicated follow up. Bladder: No wall thickening or surrounding stranding. Reproductive organs: Unremarkable. Stomach, small bowel, and large bowel: Oral contrast reaches the mid transverse colon. No pericolonic inflammatory stranding or fluid collection. No evidence of small bowel obstruction. Appendix: Normal appendix. Peritoneum and retroperitoneum: No ascites or pneumoperitoneum. No omental or mesenteric lesions. Lymph nodes: No enlarged lymph nodes. Blood vessels: Mild vascular calcifications but no aneurysm. No evidence of venous thrombosis. Abdominal and pelvic wall soft tissues: Fat-containing umbilical hernia. Bones: Questionable buckling of the cortex of the distal right clavicle (2:1). Mild degenerative changes of visualized spine. Unchanged nonspecific sclerotic focus in the lateral left rib #5 (2:36). IMPRESSION: Unchanged right pulmonary nodules including a 0.7 cm groundglass nodule in the anterior upper lobe. No new or enlarging pulmonary nodules. No acute findings in the abdomen or pelvis. Hepatic steatosis. Questionable buckling of the cortex of the distal right clavicle. This is not completely imaged and may be artifactual. If there is clinical concern for a clavicular injury, consider assessment with contrast radiographs. I have personally reviewed the images and I agree with this report. WSN: [id number] Ordering Physician: Haley Olson Dictated By: José Miguel Mccurdy MD Dictated Date/Time: 04/15/24 1:43 pm Reviewed By: Jarvis Blair MD Signed By: Jarvis Blair MD Signed Date/Time: 04/15/24 1:48 pm Transcribed By: CHRISTOPHER Transcribed Date/Time: 04/15/24 12:45 pm Patient Class: Outpatient Haley Olson MD [address], [id number], [facility] [place], [place] 04/16/2024 17:19:59 Ct, Chest, W/ Contrast : CT Chest W/ Contrast, CT Abd/Pelvis W/ IV + Oral Contrast Reason: SOLITARY PULMONARY NODULE. TECHNIQUE: Helical CT scan of the chest, abdomen, and pelvis with IV contrast, formatted in 3 planes. 100 cc of Omnipaque 300 was administered intravenously. This study was performed with oral contrast. Weight-based protocol was performed using automatic exposure control. CTDIvol Body: 16.22 mGy, DLP Body: 1044 mGy*cm. COMPARISON: CT chest 10/09/2022. FINDINGS: Sales Representative Education Courses view findings, lines and tubes: None. Trachea and airways: Patent without evidence of tracheal or endobronchial lesion. Lungs and pleura: All lung findings detailed on series 3, unless otherwise specified. * Mild bibasilar atelectasis. Few scattered bilateral pulmonary cyst. * No effusion or pneumothorax. RIGHT: * Unchanged apical nodules measuring up to 0.3 cm (13). * Unchanged 0.5 cm nodule in the medial lower lobe (64). * Unchanged are 0.7 cm groundglass nodule in the upper lobe (24). * Calcified granuloma in the upper lobe. * No new or enlarging right pulmonary nodules. LEFT * No left pulmonary nodules. Mediastinum and murali: No mass or hematoma. No mediastinal or hilar lymphadenopathy. No esophageal abnormality. Normal thyroid. Heart: Heart is normal in size. No pericardial effusion. Mild coronary artery calcification. Aorta: Mild vascular calcification but no aneurysm. Incidentally noted common origin of the brachiocephalic and left common carotid arteries, a normal variant. Pulmonary arteries: Normal caliber. No evidence of pulmonary embolism on this study performed without angiographic technique. Chest wall soft tissues: No acute abnormality. Diaphragm: Small left Bochdalek hernia. Liver: Diffuse low-attenuation throughout the liver parenchyma consistent with hepatic steatosis. No evidence of a suspicious lesion. Gallbladder: No CT evidence of gallbladder pathology. Bile ducts: No biliary ductal dilation. Spleen: Normal. Accessory splenic tissue is incidentally noted. Pancreas: Scattered punctate calcifications throughout the pancreatic parenchyma, may be sequela of chronic pancreatitis. No ductal dilatation. No suspicious lesions. Adrenal glands: No nodule. Kidneys and ureters: No hydronephrosis, stone, or suspicious lesion. Small hypodensities that are too small to characterize are noted, requiring no dedicated follow up. Bladder: No wall thickening or surrounding stranding. Reproductive organs: Unremarkable. Stomach, small bowel, and large bowel: Oral contrast reaches the mid transverse colon. No pericolonic inflammatory stranding or fluid collection. No evidence of small bowel obstruction. Appendix: Normal appendix. Peritoneum and retroperitoneum: No ascites or pneumoperitoneum. No omental or mesenteric lesions. Lymph nodes: No enlarged lymph nodes. Blood vessels: Mild vascular calcifications but no aneurysm. No evidence of venous thrombosis. Abdominal and pelvic wall soft tissues: Fat-containing umbilical hernia. Bones: Questionable buckling of the cortex of the distal right clavicle (2:1). Mild degenerative changes of visualized spine. Unchanged nonspecific sclerotic focus in the lateral left rib #5 (2:36). IMPRESSION: Unchanged right pulmonary nodules including a 0.7 cm groundglass nodule in the anterior upper lobe. No new or enlarging pulmonary nodules. No acute findings in the abdomen or pelvis. Hepatic steatosis. Questionable buckling of the cortex of the distal right clavicle. This is not completely imaged and may be artifactual. If there is clinical concern for a clavicular injury, consider assessment with contrast radiographs. I have personally reviewed the images and I agree with this report. WSN: [id number] Ordering Physician: Haley Olson Dictated By: José Miguel Mccurdy MD Dictated Date/Time: 04/15/24 1:43 pm Reviewed By: Jarvis Blair MD Signed By: Jarvis Blair MD Signed Date/Time: 04/15/24 1:48 pm Transcribed By: CHRISTOPHER Transcribed Date/Time: 04/15/24 12:45 pm Patient Class: Outpatient Haley Olson MD [address], [address], [facility] [place], [place] 04/16/2024 17:20:00 Xr, Wrist, 3 Or More View : Wrist Comp Min 3 Views Left Reason: Carpal Tunnel syndrome COMPARISON: None. FINDINGS: No fracture or dislocation. Normal carpal configuration. Intact radial and ulnar styloid processes. Moderate triscaphe osteoarthritis with joint space narrowing. Moderate degenerative change at the first carpometacarpal joint. Normal soft tissues. IMPRESSION: Moderate triscaphe osteoarthritis. Moderate degenerative change at the first carpometacarpal joint. I have personally reviewed the images and I agree with this report. WSN: [id number] Ordering Physician: Haley Olson Dictated By: Xochitl Julien DO Dictated Date/Time: 04/20/25 4:23 pm Reviewed By: Tim Rizvi MD, V Signed By: Tim Rizvi MD, V Signed Date/Time: 04/20/25 4:28 pm Transcribed By: CHRISTOPHER Transcribed Date/Time: 04/20/25 4:16 pm Patient Class: Outpatient Haley Olson MD [address], [address], [facility] [place], [place] 04/20/2025 18:55:53 Problems Name Problem SNOMED Code Status Onset Date Resolution Date Notes Provider Name and Address Organization Details Recorded Time Osteopor osis 05230332 Completed 03/26/2024 Haley Olson MD [address], [address], [facility] 07/31/202 4 14:07:35 Hyperlip idemia 11709342 Active Nita BlanchardAlisaSANGITA Cheema, [facility] 1 11:20:43 Gastroes ophageal reflux disease 861007431 Active Nita pinto MA null, [facility] 1 11:22:29 Insomnia 017467253 Active Nita NoeSANGITA Cheema, [facility] 1 11:22:37 Endometr iosis (clinica l) 156216010 Active SANGITA Gibson, [facility] 1 11:26:56 COVID-19 251330773 Completed 201912/01/2021 Haley Olson MD [address], [place], [address], [facility] [place], [place] 2 16:27:01 Prediabe geovany 336845091 Active 2021 Haley Olson MD [address], [place], [address], [facility] [place], [place] 2 16:27:44 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 586071022 Active 2021 Haley Olson MD [address], [place], [address], [facility] [place], [place] 2 09:17:30 Nodule of lung 371729357 Active [address]22 CT at 6-12 months to confirm persisten ce (from 10/09/22), then CT every 2 years until 5 years follow-up per Guideline s for Managemen t of Incidenta l Pulmonary Nodules Detected on CT Images Haley Olson MD [address], [place], [address], [facility] [place], [place] 3 16:23:57 Body mass index 30+ - obesity 755927803 Active 2022 Haley Olson MD [address], [place], [address], [facility] [place], [place] 3 10:26:35 Osteopen ia 627342791 Active 2023 Haley Olson MD [address], [place], [address], [facility] [place], [place] 4 14:07:42 Problem Notes None recorded. Procedures Surgical History Date Name Laterality Status Provider Name and Address Organization Details Recorded Time 4 Most Recent Mammogram completed Fabiola Pisano MA [facility] 03/26/2024 13:30:00 3 Most Recent Bone Density completed Nita chung MA [facility] 01/03/2023 10:04:45 3 Dxa bone density krysten vrt fx completed Nita chung MA [facility] 01/03/2023 10:05:04 2 Mammogram screening completed Nita chung MA [facility] 01/03/2023 10:04:56 9 Date of Last Pap Smear completed Nita chung MA [facility] 06/29/2021 11:15:01 lumpectomy of right breast completed Nita chung MA [facility] 06/29/2021 11:25:39 biopsy of breast completed Nita chung MA [facility] 06/29/2021 11:25:56 Endometr ablate thermal completed Nita chung MA [facility] 06/29/2021 11:26:45 Oral surgery procedure completed Nita chung MA [facility] 06/29/2021 11:27:11 Imaging Results None recorded. Procedure Notes None recorded. Medical Equipment None Reported. Allergies No known drug allergies Medications Name Sig Start Date Stop Date Status Note LastModified by Organization Details LastModified Time azelastin e 0.05 % eye drops INSTILL 1 DROP INTO AFFECTED EYE TWICE A DAY 03/26 completed Not Available Not Available Not Available meloxicam 15 mg tablet Take 1 tablet every day by oral route as needed for 15 days. 07/09 completed Not Available Not Available Not Available alendrona te 70 mg tablet TAKE 1 TABLET BY MOUTH WEEKLY 03/26 completed Not Available Not Available Not Available simvastat in 40 mg tablet TAKE 1 TABLET DAILY AT BEDTIME 03/26 completed currentl y is taking 1/2 for roughly 1 month 03/26/20 24 (causing joints to ache) Not Available Not Available Not Available nystatin- triamcino lone 100,000 unit/gram -0.1 % topical ointment Apply 1 applicat ion twice a day by topical route for 30 days. 04/17 completed Not Available Not Available Not Available simvastat in 20 mg tablet TAKE 1 TABLET EVERY EVENING active Not Available Not Available No t Available clotrimaz ole-betam ethasone 1 %-0.05 % topical cream Apply 1 applicat ion twice a day by topical route as needed for 14 days. 03/26 completed Not Available Not Available Not Available omeprazol e 20 mg capsule,d elayed release Take 1 capsule every day by oral route at bedtime. 09/22 completed Not Available Not Available Not Available monteluka st 10 mg tablet TAKE 1 TABLET DAILY active Not Available Not Available No t Available estradiol 0.01% (0.1 mg/gram) vaginal cream INSERT 0.5 GRAM VAGINALL Y 3TIMES A WEEK AT BEDTIME active Not Available Not Available No t Available albuterol sulfate HFA 90 mcg/actua tion aerosol inhaler Inhale 2 puffs every 4-6 hours as needed for 90 days active Not Available Not Available No t Available Vitamin D3 25 mcg (1,000 unit) capsule Take 1 capsule every day by oral route. 03/27 completed Not Available Not Available Not Available Multivita min 50 Plus tablet Take 1 tablet every day by oral route. 09/22 completed may be causing upset stomach Not Available Not Available Not Available Pepcid AC 20 mg tablet Take 1 tablet twice a day by oral route as needed. active pays out of pocket Not Available Not Available Not Available melatonin 20mg 1 tablet as needed at HS active Not Available Not Available No t Available cholecalc iferol (vitamin D3) 1,250 mcg (50,000 unit) capsule TAKE 1 CAPSULE BY MOUTH EVERY WEEK,X60 DAYS 03/26 completed Not Available Not Available Not Available D3-2000 50 mcg (2,000 unit) capsule Take 1 capsule every day by oral route. active Not Available Not Available No t Available Chrissy Allergy 180 mg tablet Take 1 tablet every day by oral route for 90 days. active Not Available Not Available No t Available Flonase Allergy Relief 50 mcg/actua tion nasal spray,marlyn pension [place] 1 spray every day by intranas al route. active purchase s out of pocket Not Available Not Available Not Available Spiriva Respimat 1.25 mcg/actua tion solution for inhalatio n USE 2 INHALATI ONS DAILY DIRECTED active Not Available Not Available No t Available Flonase Sensimist 27.5 mcg/actua tion nasal spray,marlyn pension Take 1 spray every day by nasal route at bedtime for 90 days. 09/22 completed Not Available Not Available Not Available Vitals Date Recorded Body height Body mass index (BMI) Body weight Oxygen saturation Heart rate Body temperature Systolic And Diastolic Provider Name and Address Organization Details Last Updated DateTime 4 161.29 cm 32.5 kg/m2 65069.8 8 g 97 % 80 /min 97.6 [degF] 108/68 mm[Hg] Fabiola Pisano MA [facility] [place] 4 13:24:02 Date Recorded Body height Body mass index (BMI) Body weight Heart rate Oxygen saturation Body temperature Systolic And Diastolic Provider Name and Address Organization Details Last Updated DateTime 5 161.29 cm 33.5 kg/m2 61241.7 4 g 98 /min 97 % 97.9 [degF] 124/73 mm[Hg] Nkechi Rodrigez MA [facility] [place] 5 09:58:24 Date Recorded Body height Body mass index (BMI) Body weight Heart rate Oxygen saturation Body temperature Systolic And Diastolic Provider Name and Address Organization Details Last Updated DateTime 3 161.29 cm 33.1 kg/m2 91707.5 5 g 73 /min 97 % 98.3 [degF] 100/65 mm[Hg] Nita pinto MA [facility] 3 11:01:30 Date Recorded Body height Body mass index (BMI) Body weight Oxygen saturation Heart rate Body temperature Systolic And Diastolic Provider Name and Address Organization Details Last Updated DateTime 5 161.29 cm 33.8 kg/m2 20959.6 2 g 98 % 83 /min 97.9 [degF] 129/81 mm[Hg] Fabiola Pisano MA [facility] 5 12:50:40 Social History Question Answer Notes LastModified by Organizat ion Details LastModified Time Tobacco Smoking Status [facility] 11:03:35 Do You Have An Advance Directive? No [email or web address] Information not available 04/10/2022 Is Blood Transfusion Acceptable In An Emergency? No Information not available 06/29/2021 What Is Your Level Of Caffeine Consumption? Moderate 2-3 Cups Of Coffee Daily; Green Tea In The Evening Information not available 06/29/2021 How Much Tobacco Do You Chew? None Information not available 06/29/2021 What Type Of Diet Are You Following? REGULAR Not Much Red Meat; Lots Of Water; Slim Fast Once Daily Information not available 09/22/2022 Which Illicit Or Recreational Drugs Have You Used? No Information not available 06/29/2021 When Did You Quit Smoking? 11-15yearssi venu bryan Information not available 06/29/2021 Do You Take Precautions To Prevent Distracted Driving? No Information not available 06/29/2021 How Often Do You Need To Have Someone Help You When You Read Instructions, Pamphlets, Or Other Written Material From Your Doctor Or Pharmacy? Never Information not available 06/29/2021 Have You Served In The ? No Information not available 06/29/2021 *AWV ONLY* Are You Presently Prescribed Opioid Medication By PCP Or Specialist? If YES -Provider Assess The Benefit For Other, Non-opioid Pain Therapies Instead, Even If The Patient Does Not Have OUD But Is Possibly At Risk. No [email or web address] Information not available 12/30/2021 How Many Children Do You Have? 1 Erlinda Information not available 06/29/2021 What Is Your Current Pack Years? 10-19pamary miranda [email or web address] Information not available 04/10/2022 Do You Use Protection During Sex? Always Information not available 06/29/2021 Do You Use Your Seat Belt Or Car Seat Routinely? Yes Information not available 06/29/2021 Are You Sexually Active? No Information not available 06/29/2021 Do You Have Smoke And Carbon Monoxide Detectors In Your Home? Yes Information not available 06/29/2021 At What Age Did You Start Smoking Tobacco? 12 Quit At 48 Information not available 06/29/2021 Are You Passively Exposed To Smoke? No Information not available 06/29/2021 How Much Tobacco Do You Smoke? 0.5 PPD Information not available 06/29/2021 Do You Use Sunscreen Routinely? Yes Information not available 06/29/2021 How Many Years Have You Smoked Tobacco? 36 Information not available 06/29/2021 Sex: Unknown Functional Status Question Answer Note LastModified by Organizat ion Details LastModified Time Do you use any illicit or recreational drugs? No [email or web address] Information not available 04/10/2022 Do you or have you ever used any other forms of tobacco or nicotine? No [email or web address] Information not available 04/10/2022 What is your level of alcohol consumption? None Information not available 06/29/2021 Are you currently employed? Yes Information not available 06/29/2021 Are you able to walk independently without assistance or assistive devices? YESWOREST [email or web address] Information not available 04/10/2022 Are you able to care for yourself independently? 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 Moderate Walking ladonna Information not available 03/27/2025 Mental Status None recorded. Family History Relationship Description Onset Age of this Age Resolved Age Notes LastModified by Organization Details LastModified Time Mother Malignant neoplasm of breast [email or web address] s Not available 06/29/2021 11:03:20 Mother Cerebrovascu lar accident [email or web address] Not available 08/2024 10:38:15 Mother Osteoarthrit is [email or web address] Not available 2024 10:38:38 Daughter Harmful pattern of use of alcohol [email or web address] s Not available 06/29/2021 11:03:20 Maternal Grandmother Diabetes mellitus [email or web address] s Not available 06/29/2021 11:22:53 Medical History Condition Response Acid Reflux (GERD) Y Endometriosis Y High Cholesterol Y Asthma Y Allergies Y Osteoporosis Y Gynecological History Statement/Question Response Date of Last Pap Smear 02/21/2019 Date of Last Colonoscopy Most Recent Mammogram 03/10/2024 Most Recent Bone Density 01/03/2023 Obstetrics History GPAL:G 0 P 0 0 0 0 Immunizations Vaccine Type Date Status Note Provider Name and Address Organization Details Recorded Time Pneumococcal Conjugate, unspecified formulation 013 completed Ekaterina Anguiano null, [facility] 06/28/2021 15:44:15 Pneumococcal Conjugate, unspecified formulation 014 completed [facility] null, [facility] 06/28/2021 15:44:19 Pneumococcal Conjugate, unspecified formulation 016 completed Ekater[facility]gu[facility] null, [facility] 06/28/2021 15:44:32 Tdap 009 completed Ekaterina Anguiano null, [facility] 06/28/2021 15:44:43 COVID-19, mRNA, LNP-S, PF, 100 mcg/0.5mL dose or 50 mcg/0.25mL dose 021 completed Kimberlee vivas [facility] 06/29/2021 10:44:06 COVID-19, mRNA, LNP-S, PF, 100 mcg/0.5mL dose or 50 mcg/0.25mL dose 021 completed Kimberlee vivas [facility] 06/29/2021 10:44:23 COVID-19, mRNA, LNP-S, PF, 100 mcg/0.5mL dose or 50 mcg/0.25mL dose 021 completed SANGITA Sandhu, [facility] 12/30/2021 08:37:06 Tdap 021 completed SANGITA Mejia [facility] 04/10/2022 13:20:52 zoster recombinant 024 completed SANGITA Knowles [facility] 03/26/2024 13:17:04 zoster recombinant 024 completed SANGITA Knowles [facility] 03/26/2024 13:17:04 RSV, bivalent, protein subunit RSVpreF, diluent reconstituted, 0.5 mL, PF 024 completed SANGITA Knowles [facility] 03/26/2024 13:17:04 Pneumococcal conjugate PCV20, polysaccharide [id number] conjugate, adjuvant, PF 024 completed Not Available [facility] 06/17/2025 08:19:07 Influenza, split virus, quadrivalent, PF 021 cancelled patient objection Beatriz vivas [facility] 07/04/2021 12:19:32 Past Encounters Encounter ID Performer Location Encounter Start Date Encounter Closed Date Diagnosis/Indication Diagnosis SNOMED-CT Code Diagnosis ICD10 Code Diagnosis IMO Codes Diagnosis Note [id number] Haley Olson MD Main Office [address] [facility] [place] [address] 06/29/2021 10:36:34 06/29/2021 12:00:35 Fatigue 94639388 R53.83 Hepatitis C screening 41 5872208 Z11.59 Impaired f asting glycemia 376236540 R73.01 Administra tion of viral vaccine 89985303 Z23 Screening for malignant neoplasm of colon 821954048 Z12.11 has ColoGuard at home from previous PCP; she promises to do it Influenza vaccination declined 922787508 Z28.21 Asthma 903390148 J45.90 9 Pain of mu ltiple joints 22635036 M25.50 Hyperlipidemia 54565497 E78.5 Vitamin D deficiency 347 25428 E55.9 Varicella vaccination 68 841935 Z23 Allergic rhinitis 240953 04 J30.9 Patient ne w to provider 1603060865 63164 Z76.89 Patient was counseled on healthy diet, exercise and nutrition due to Body mass index is 33.1 kg/m . Last Colonoscop y:Date: noneResult :Plan: has ColoGuard kit at home and will do it soon Last Mammogram: Date: 02/18/21Res ult: BIRAD -2Plan:rep eat next year Last Pap smearDate: 02/21/19Res ult: Neg for HERMILA, HPV negPlan:Pe r PRODUCTION QUALITY MANAGER note repeat in 2021 Bone density scanDate: 04/20/2020 Result: osteopenia , on alendronat ePlan: would consider repeat at 63. Vaccines:T dAP: 06/29/21Zos ter: script providedPC V13: not [id number]: 08/11/13In fluenza: declined, aware risk.Covid : 11/22/20, 12/20/20 Routine labs today Immunizati on status reviewed. Will screen based on risk factors. Regular dental and ophtho care advised as well as seat belt and sunscreen use. Distracted driving discussed. Medication reconciled . Body mass index 30+ - obesity 394436959 Z68.33 - Diet and exercise discussed- Patient made aware of risks of obesity- Encouraged to loose weight. Goal set to loose weight at 1-1.5 Lbs/week- Avoid starchy and fatty food- Encouraged use of green vegetables and fruits Obesity 844223903 E66.9 [id number] aHley Olson MD Main Office [address] [place] [address] 12/30/2021 08:32:25 12/30/2021 09:46:58 Hyperlipidemia 68388231 E78.5 Allergic rhinitis 170917 04 J30.9 Obesity 899650147 E66.9 Body mass index 30+ - obesity 071409526 Z68.33 - Diet and exercise discussed- Patient made aware of risks of obesity- Encouraged to loose weight. Goal set to loose weight at 1-1.5 Lbs/week- Avoid starchy and fatty food- Encouraged use of green vegetables and fruits Screening for malignant neoplasm of colon 980659467 Z12.11 has ColoGuard at home from previous PCP; she promises to do it Prediabetes 484527938 R7 3.03 Adult heal th examination 166870608 Z00.00 Patient was counseled on healthy diet, exercise and nutrition due to Body mass index is 33.5 kg/m . Last Colonoscop y:Date: noneResult :Plan: has ColoGuard kit at home and will do it soon Last Mammogram: Date: 02/18/21Res ult: BIRAD -2Plan: follows [facility] [place] for mammogram tells me has apt. Last Pap smearDate: 02/21/19Res ult: Neg for HERMILA, HPV negPlan:Pe r PRODUCTION QUALITY MANAGER note repeat in 2021, has apt in may. Bone density scanDate: 04/20/2020 Result: osteopenia , on alendronat e notes been on for >5yrs advise to discuss with PRODUCTION QUALITY MANAGER risk for use >5yrs.Plan : would consider repeat at 63. Vaccines:T dAP: 06/29/21Zos ter: reminded to get.PCV20: not dueInfluen za: declined, aware risk.Covid : 11/22/20, 12/20/20, 07/11/21, Routine labs today Immunizati on status reviewed. Will screen based on risk factors. Regular dental and ophtho care advised as well as seat belt and sunscreen use. Distracted driving discussed. Medication reconciled . Mild chron ic obstructive pulmonary disease 832308709 J44.9 Pain of to e of right foot 7602323027 28282 M79.674 Notes achy pain in 3rd toe right side, sensation intact, strength intact.Dul l pain, non radiating. No fever, no redness, or warmth. Denies pain today, notes sometime.L ikely arthritic pain, will get xr, uric acid and refer to podiatry. Cough 62128029 R05.3 Cough since Nov since covid still not resolved, PFT show mild obstructio n. [id number] Haley Olson MD Main Office [address] [place] [address] [place] [address] 03/28/2022 09:56:03 03/28/2022 10:40:04 Mild chronic obstructive pulmonary disease 123018958 J44.9 spirometry is clear just mild obstructio ns Hyperlipidemia 72819467 E78.5 Will increase.W ith lifestyle changes.Ri sk fo myopathy discussed. Gastroesop hageal reflux disease 951201815 K21.9 Cough 14452379 R05.3 Cough since Nov since covid still not resolved, PFT show mild obstructio n.Notes GERD, will start PPI follow up 1 mo and follow up.Denies night sweats or weight loss, or possible exposure to tb or travel.Den ies shortness of breath or CP or fever, sore throat or swelling in legs.Advis ed covid test. [id number] Haley Olson MD Main Office [address] [place] [address] [facility] [place] [address] 04/10/2022 13:13:54 04/10/2022 13:51:23 Mild chronic obstructive pulmonary disease 008044556 J44.9 Spirometry notes mild obstructio ns. Cough 72203497 R05.3 Cough since Nov since covid still not resolved, PFT show mild obstructio n.Notes GERD, will start PPI follow up 1 mo and follow up.Notes some improvemen t with PPI, also some possible exposure to mold. She will limit exposure.I f no improvemen t will get CT chestDenie s night sweats or weight loss, or possible exposure to tb or travel.Den ies shortness of breath or CP or fever, sore throat or swelling in legs. Gastroesop hageal reflux disease 940451686 K21.9 CW PPI may consider EGD. [id number] Haley Olson MD Main Office [address] [place] [address] 09/22/2022 09:13:50 09/22/2022 10:13:45 Cough 48990156 R05.3 PFT show mild obstructio n.Notes GERD, will start PPI follow up 1 mo and follow up.Notes after PPI and life style changes symptoms improved of gerd still has cough and dyspnea on exertion.W ill get CT chest and cardiac workup.CP or fever, sore throat or swelling in legs. Gastroesop hageal reflux disease 336176489 K21.9 Sx improved now on just pepcid as needed. Mild chron ic obstructive pulmonary disease 185236779 J44.9 Spirometry notes mild obstructio ns. Dyspnea on exertion 6084 5006 R06.09 Subconjunc tival hemorrhage of right eye 8441614042 66654 H11.31 No visual changes, EOM intact PERALA, reassuranc e provided, BP good in office.Als o advised to discussed with optho. Snoring 53507280 R06.83 [id number] Haley Olson MD Main Office [address] [facility] [address] [facility] [place] [address] 10/30/2022 09:14:17 10/30/2022 10:02:23 Cough 17525910 R05.3 PFT show mild obstructio n.Notes GERD, will start PPI follow up 1 mo and follow up.Notes after PPI and life style changes symptoms improved of gerd still has cough and dyspnea on exertion.C T showed lung nodule, repeat 6-12 mo.No: CP or fever, sore throat or swelling in legs.If all wnl will consider allergy testing. Gastroesop hageal reflux disease 136479335 K21.9 Sx improved now on just pepcid as needed. Mild chron ic obstructive pulmonary disease 197172169 J44.9 Spirometry notes mild obstructio ns.spiriva helping, cough improving. Has not been using daily.Advi sed daily use, will follow up in December. Dyspnea on exertion 6084 5006 R06.09 Stress test end of month.Echo had will try to get result. Snoring 04922447 R06.83 Notes schedule at end of month. [id number] Haley Olson MD Main Office [address] [facility] [address] [facility] [place] [address] 01/03/2023 09:51:33 01/03/2023 10:37:47 Cough 02453780 R05.3 PFT show mild obstructio n.Notes after PPI and life style changes symptoms improved of gerd still has cough and dyspnea on exertion.C T showed lung nodule, repeat 6-12 mo.Will refer to model dresser. Gastroesop hageal reflux disease 128015985 K21.9 Sx improved now on just pepcid as needed. Mild chron ic obstructive pulmonary disease 395846294 J44.9 Spirometry notes mild obstructio ns.spiriva helping, cough improving. Has not been using daily.Advi sed daily use, will follow up in December. Snoring 38113870 R06.83 Needs to make apt. Intermitte nt palpitations 607200539 R00.2 Stress echo reassuring had echo will get results. Prediabetes 984596848 R7 3.03 Hyperlipidemia 15333507 E78.5 Will increase.W ith lifestyle changes.Ri sk fo myopathy discussed. Adult heal th examination 673661853 Z00.00 Patient was counseled on healthy diet, exercise and nutrition due to Body mass index is 33 kg/m . Last Colonoscop y:Date: noneResult :Plan: has ColoGuard kit at home and will do it soon Last Mammogram: Date: 02/24/22Resu lt: VIJAY -2Plan: follows [facility] for mammogram tells me has apt in February 2023 Last Pap smearDate: 02/21/19Res ult: Neg for HERMILA, HPV negPlan:Pe r PRODUCTION QUALITY MANAGER note repeat in 2021, has apt in may. Bone density scanDate: 04/20/2020 Result: osteopenia , on alendronat e notes been on for >5yrs advise to discuss with PRODUCTION QUALITY MANAGER risk for use >5yrs.Plan : has repeat today Vaccines:T dAP: 06/29/21Zos ter rec: script given [id number] : not dueInfluen za: yearly flu shot encouraged Covid: 11/22/20, 12/20/20, 07/11/21 Routine labs today Immunizati on status reviewed. Will screen based on risk factors. Regular dental and ophtho care advised as well as seat belt and sunscreen use. Distracted driving discussed. Medication reconciled . Nodule of lung [id number] R91.1 CT showed lung nodule, repeat 6-12 mo. Screening for malignant neoplasm of colon 298118210 Z12.11 Z12.12 has ColoGuard at home from previous PCP; she promises to do it Varicella vaccination 68 077718 Z23 Body mass index 30+ - obesity 546397919 Z68.30 E66.9 - Diet and exercise discussed- Patient made aware of risks of obesity- Encouraged to loose weight. Goal set to loose weight at 1-1.5 Lbs/week- Avoid starchy and fatty food- Encouraged use of green vegetables and fruits Obesity 609028997 E66.9 Melanocytic nevus 860934 001 D22.9 Night sweats 48367830 R6 1 Will get lab and urine work up, sleep study pending, ct chest neg, echo no concerning .If normal will get CT abd/pelvis .trial ppi did not help sx. [id number] Haley Olson MD Main Office [address] [place] [address] 04/06/2023 10:36:05 04/06/2023 11:41:56 Night sweats 63557213 R61 The patient has several potential factors which could be contributi ng to her night sweats: Breast Mass:Millie ntly undergoing evaluation .Biopsy is scheduled for Sunday. 24-Hour Urine Sample:I'v e reminded the patient to provide a 24-hour urine sample to evaluate for possible pheochromo cytoma. Cologuard Sample:The patient was again advised to complete and submit her Cologuard sample. Trial of PPI:Previo usly administer ed, but did not alleviate her symptoms. CT Chest:A scan was performed and revealed a nodule. While it isn't currently deemed suspicious , a follow-up in 6 months is warranted. Sleep Study:The patient is due for this and I've emphasized the importance of completing it. Given the results of the [facility] oned evaluation s:If the outcomes from the urine studies, Cologuard test, and breast biopsy are all normal, we'll then contemplat e a CT scan of the abdomen and pelvis to further assess the cause of her symptoms. Snoring 65429221 R06.83 Referral given again. Allergic conjunctivitis 242011607 H10.11 Suspect allergic conjunctiv itis.Will do drop.Advis ed to avoid mascara which she has on.She has optho apt coming up.Red flag discussed. Intermitte nt palpitations 996800587 R00.2 If pheo test neg will consider beta divina if beta divina no improvemen t will refer to cardiology . Nodule of lung 854908880 R91.1 CT showed lung nodule, repeat 6-12 mo, will place order after above test normal. [id number] Haley Olson MD Main Office [address] [facility] [address] [facility] [place], [place] [address] 03/26/2024 12:51:56 03/26/2024 14:12:32 Adult health examination 280693401 Z00.00 Patient was counseled on healthy diet, exercise and nutrition due to Body mass index is 32.5 kg/m . Last Colonoscop y:Date: noneResult :Plan: Has not been compliant discussed risk, re-ordered cologuard. Last Mammogram: Date: 03/10/2024 Result: BIRAD -2Plan: follows breast center for mammogram tells me has apt in February 2023 Last Pap smearDate: 06/06/22Re sult: Neg for HERMILA, HPV neg, tz absentPlan : Per asccp screen 5yrs Bone density scanDate: 01/03/2023 Result: osteopenia Plan: weight bearing encouraged , hx of alendronat e use. Vaccines:T dAP: 06/29/21Zos ter rec: 11/28/23, 01/29/24PCV2 0: script givenInflu luis f: yearly flu shot encouraged Covid: encourage updated vaccine.RS V: 11/28/23 Routine labs today Immunizati on status reviewed. Will screen based on risk factors. Regular dental and ophtho care advised as well as seat belt and sunscreen use. Distracted driving discussed. Medication reconciled . Screening for malignant neoplasm of colon 666641814 Z12.11 Z12.12 has ColoGuard at home from previous PCP; she promises to do it Snoring 58910769 R06.83 Referral given again. Fatigue 16823326 R53.83 Z00.00 Hyperlipidemia 31692916 E78.5 Z00.00 Had myopathy with higher dose statin was doing ok with 20mg. Will send 20 if lipid still high will consider zetia. Nodule of lung 688846196 R91.1 Prediabetes 659152082 R7 3.03 Administra tion of pneumococcal vaccine 78154595 Z23 Mild chron ic obstructive pulmonary disease 992014259 J44.9 Spirometry notes mild obstructio ns.spiriva helping, cough improving. Has not been using daily. Night sweats 62197782 R6 1 The patient has several potential factors which could be contributi ng to her night sweats: Cologuard Sample:The patient was again advised to complete and submit her Cologuard sample. Trial of PPI:Previo usly administer ed, but did not alleviate her symptoms. CT Chest:A scan was performed and revealed a nodule. While it isn't currently deemed suspicious , a follow-up in is warranted. Sleep Study:The patient is due for this and I've emphasized the importance of completing it. She needs CT chest thus will get abdomen pelvis at the same time. Anxiety state 797742358 F41.1 related to dtr etoh abuse, she works on [employer] for this. She prefers to avoids meds and therapy at this point. No thoughts of self harm or harming others. [id number] Haley Olson MD Main Office [address] [facility] [address] [facility], [place] [address] 03/27/2025 09:36:22 03/27/2025 11:11:15 Adult health examination 989672525 Z00.00 Patient was counseled on healthy diet, exercise and nutrition due to Body mass index is 33.5 kg/m . Last Colonoscop y:Date: noneResult :Plan: Has not been compliant discussed risk, re-ordered cologuard. Last Mammogram: Date: 03/16/2025 Result: BIRAD -2Plan: follows breast center for mammogram Last Pap smearDate: 06/06/22Re sult: Neg for HERMILA, HPV neg, tz absentPlan : Past age for screening Bone density scanDate: 01/05/2025 Result: osteopenia Plan: weight bearing encouraged , hx of alendronat e use. Vaccines:T dAP: 06/29/21Zos ter rec: 11/28/23, 01/29/24PCV2 0: 07/02/24Inf luenza: yearly flu shot encouraged Covid: encourage updated vaccine.RS V: 11/28/23 Routine labs today Immunizati on status reviewed. Will screen based on risk factors. Regular dental and ophtho care advised as well as seat belt and sunscreen use. Distracted driving discussed. Medication reconciled . Anxiety state 663992293 F41.1 related to dtr etoh abuse, she works on [employer] for this. She prefers to avoids meds and therapy at this point. No thoughts of self harm or harming others. Screening for malignant neoplasm of colon 015127360 Z12.11 Z12.12 has ColoGuard at home from previous PCP; she promises to do it Snoring 19380275 R06.83 [id number] Referral given again. Hyperlipidemia 25161669 E78.5 Z00.00 Nodule of lung 072574952 R91.1 Repeat Scan Mar 2026 Prediabetes 697070018 R7 3.03 Mild chron ic obstructive pulmonary disease 847704436 J44.9 Spirometry notes mild obstructio ns.spiriva helping, cough improving. Has not been using daily. Night sweats 87746694 R6 1 The patient has several potential factors which could be contributi ng to her night sweats: Cologuard Sample:The patient was again advised to complete and submit her Cologuard sample. Trial of PPI:Previo usly administer ed, but did not alleviate her symptoms. Sleep Study:The patient is due for this and I've emphasized the importance of completing it. Fatigue 44358865 R53.83 Z00.00 Edema 519280649 R60.9 [id number] b/l chronic will get lab and follow up.No claf pain. [id number] Haley Olson MD Main Office [address] [facility] [address] [place] [place] [address] 04/17/2025 12:34:01 04/17/2025 13:20:56 Edema 023174093 R60.9 78711470 Suspected 2/2 to ISAMAR rec sleep study. Carpal omero patricia syndrome of left wrist [id number] 42808 G56.02 [id number] Based on history and physical examinatio n, I suspect the patient has carpal tunnel syndrome, with possible arthritic changes as well. Her symptoms appear more consistent with carpal tunnel. -Splinting : Recommend use of a night splint and during work.-Medi cation: Prescribed meloxicam for pain. Patient is aware not to use other over-the-c ounter NSAIDs concurrent ly. Advised adequate hydration and to take medication with meals. She should take it daily for the first 5 days, then as needed if symptoms improve.-T herapy/Exe rcises: Referred to occupation al therapy and provided with home exercises. -Imaging: Given history of prior fracture to the affected hand, an X-ray has been ordered.-F ollow-up: Will re-evaluat e in 8 9 weeks after occupation al therapy. If symptoms persist, will consider EMG and referral to hand surgery if diagnosis is confirmed or if alternativ e diagnoses are suspected. The patient understand s and agrees with the plan. [id number] Haley Olson MD Main Office [address] [facility] [address] [place] [address] 06/17/2025 08:17:50 06/17/2025 11:37:01 Carpal tunnel syndrome of left wrist [id number] 79110 G56.02 [id number] -Diagnosti cs: Ordered EMG to confirm the diagnosis of carpal tunnel syndrome.- Referrals: Mail referral for Occupation al Therapy to initiate a multimodal management approach.- Specialist Consultati on: Refer to hand surgery for further evaluation once we get EMG results.-M edications : Continue meloxicam as needed for pain and inflammati on, reminded precuautio n.-Conserv ative Measures: Continue wrist brace use at work and during sleep, and continue home exercises. -The patient understand s and agrees with the plan. Health Concerns Section Related Observation LastModified by Organization Detai ls LastModified Time None Recorded Concern Status LastModified by Organization Details LastModified Time None Recorded Advance Directives Directive N: Payers Insurance Date Sequence Insurance Name Policy Number Policy Finney Covered Member ID Finney Member ID Guarantor Name 06/17/2025 1 [employer]ITTLE [place] ([facility] [place] [facility]) [id number] 1 Mor Renate Alexandre [id number] Mor Schroeder Notes Date Note Type Note Provider Name and Address Organization Details Recorded Time 04/06/2023 text/html ROS as noted in the HPI The patient presents for a follow-up concerning persistent night sweats. These began around the onset of her menopause at age 43, and despite now being 62, she continues to experience them. The symptoms had an abrupt onset and manifest approximately 3 times a week. She attempts to mitigate the discomfort by sleeping with both a fan and air conditioning on, and only uses sheets for bedding. Despite these measures, the sweats occasionally disturb her sleep. She describes the intensity of the sweating as moderate, noting it's bothersome but doesn't drench her bedding or clothing.Dietarily, she consumes 2 cups of coffee and 1 cup of tea daily, with the last caffeine intake from tea around 6 PM. She's tried antacids for symptom relief without success. She denies any systemic symptoms like fever, chills, joint pain, swollen glands in the neck, armpit, or groin, or other symptoms concurrent with the night sweats.The patient's past medical history is significant for intermittent palpitations, currently under evaluation. She has a cough attributed to a COPD diagnosis; inhalers have offered her some symptom relief in this regard. Additionally, she benefits from Flonase for postnasal drip. She acknowledges some degree of fatigue.Recent health concerns include the discovery of a breast lump, slated for biopsy next Sunday. She's been reminded of her overdue Cologuard test and to provide a 24-hour urine collection to assess for potential pheochromocytoma. She's already undergone a CAT scan of the chest, which identified lung nodules. The current recommendation is to repeat this scan in 6 months, which she intends to follow. We've discussed that if all these tests return negative, a CAT scan of the abdomen and pelvis will be the next step in her evaluation.Separately, she brought up a new symptom today: a watery, painful, and itchy right eye. She denies visual loss or purulent discharge, but it's worth noting she has a known history of allergies. Haley Olson MD [address] [address], [place], [address], [facility] 04/06/2023 12:55:29 03/26/2024 text/html Generic HPI TemplateReported by Patient Medicare Annual Wellness VisitReported by PatientSocial/Behaviora l HistoryFor diet and nutrition, patient reportshealthy diet. For fracture risk, patient reportsno recent explained fracture. For physical activity, patient reportsexercises on a regular basis.Mental Status:For concentration and memory, patient reportsno memory lapses or loss. For speech/motor difficulties, patient reportsno speech difficulties. For depression risk, (see phq).Functional AbilityFor hearing, patient reportsno loss of hearing. For vision, patient reportsno vision problems. For activities of daily living, patient reportsable to bathe with limited or no assistance,able to contol urination and bowels,able to dress with limited or no assistance,able to feed self with limited or no assistance,able to get out of chair or bed with limited or no assistance,able to groom with limited or no assistance, andable to toilet with limited or no assistance. For instrumental activities of daily living, patient reportsable to do house work with limited or no assistance,able to grocery shop with limited or no assistance,able to manage medications with limited or no assistance,able to manage money with limited or no assistance,able to prepare meals with limited or no assistance, andable to use the phone with limited or no assistance. For falls risk assessment, patient reportsno fall since last visit. For home safety, patient reportsno unsafe ananth hazzards,working smoke/co detectors,good lighting in the home, andreviewed sun protection.ROS as noted in the HPI Here for PE visit. Reviewed chronic medications and medical problems. Discussed screening guidelines as well as goals for fitness and weight management. Haley Olson MD [address], [address], [facility] 03/26/2024 14:08:28 03/27/2025 text/html Generic HPI TemplateReported by Patient Medicare Annual Wellness VisitReported by PatientSocial/Behaviora l HistoryFor diet and nutrition, patient reportshealthy diet. For fracture risk, patient reportsno recent explained fracture. For physical activity, patient reportsexercises on a regular basis.Mental Status:For concentration and memory, patient reportsno memory lapses or loss. For speech/motor difficulties, patient reportsno speech difficulties. For depression risk, (see phq).Functional AbilityFor hearing, patient reportsno loss of hearing. For vision, patient reportsno vision problems. For activities of daily living, patient reportsable to bathe with limited or no assistance,able to contol urination and bowels,able to dress with limited or no assistance,able to feed self with limited or no assistance,able to get out of chair or bed with limited or no assistance,able to groom with limited or no assistance, andable to toilet with limited or no assistance. For instrumental activities of daily living, patient reportsable to do house work with limited or no assistance,able to grocery shop with limited or no assistance,able to manage medications with limited or no assistance,able to manage money with limited or no assistance,able to prepare meals with limited or no assistance, andable to use the phone with limited or no assistance. For falls risk assessment, patient reportsno fall since last visit. For home safety, patient reportsno unsafe ananth hazzards,working smoke/co detectors,good lighting in the home, andreviewed sun protection.ROS as noted in the HPI Here for PE visit. Reviewed chronic medications and medical problems. Discussed screening guidelines as well as goals for fitness and weight management. Haley Olson MD [address] [address], [place], [address], [facility], [place] 03/27/2025 11:03:51 04/17/2025 text/html Musculoskeletal PainReported by PatientHPIFor severity, patient reportsworsening. For associated symptoms, patient reportstinglingbut reportsno fever,no weak limbs,no numbness of the legs/feet, andon incontinence. For location, patient reportsleft hand(-radiating.-left hand dominant). For duration, patient reportspresent for 6-12 months. For timing, patient reportspain at night. For quality, (numb, tight.). For context, (prior hx of fx.). For alleviating factors, (advil cream,). EdemaReported by PatientHPIFor context, patient reportsprior history of edemabut reportsno prior history of deep vein thrombosis,no new medications,normal salt intake, andno recent travel. For associated symptoms, patient reportsswelling in lower legs onlybut reportsno shortness of breath,no shortness of breath during exertion,no nocturia,no significant weight gain, andno cough. For quality, patient reportslegs swell equally. Haley Olson MD [address] [address], [place], [address], [facility], [place] 04/17/2025 13:22:18 06/17/2025 text/html The patient presents for a telehealth follow-up regarding her left hand symptoms, which are suspected to be related to carpal tunnel syndrome. She reports performing the recommended exercises, wearing her wrist brace, and taking meloxicam as prescribed. However, she was unable to attend occupational therapy due to an issue with referral being provided at check out. I informed her that I will mail the referral to her. She notes that her symptoms are well controlled while wearing the brace but return when the brace is removed. She wears the brace both at work and at night. The patient also reports that meloxicam has been helpful in relieving her symptoms. Haley Olson MD [address] [address], [place], [address], [facility], [place] 06/17/2025 09:04:51 OBGyn Episode No OBEpisode recorded.
--- OUTSIDE RECORDS SUMMARY | 2025-07-29 11:11 | XMS_ITS | Continuity of Care Document ---
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 The patient consented and was seen through audio only was used due to patient technology challenges. If audio only connection was used, the provider used telephone communication. Patient was located other than home in the [facility]. Provider was located in the office. No other persons participated in the telemedicine visit except for the patient unless otherwise indicated here. Total time of visit was 15 minutes. [email or web address] Not available 06/17/2025 09:04:35 Plan of Treatment Reminders Order Date Submit Date Provider Last Modified By Organization Details Last Modified Time Details Appointments None recorded. Lab None recorded. Referral None recorded. Procedures None recorded. Surgeries None recorded. Imaging electromyo gram + nerve conduction study - Left Hand 2024 025 [facility], [address] [place] [address], [address], 15:01:01 Medication Orders meloxicam 15 mg tablet 2024 025 [facility] #[id number], [phone] [place], [address], 5 05:01:42 Patient TargetsNo targets recorded. Patient InstructionsNo instructions recorded. Reason for Referral None Reported. Problems Name Problem SNOMED Code Status Onset Date Resolution Date Notes Provider Name and Address Organization Details Recorded Time Osteopor osis [id number] Completed 03/26/2024 Loren Olson MD [address] [facility] [address], [place], [address], [facility] 4 14:07:35 Hyperlip idemia 56045043 Active SANGITA Gibson, [facility] 1 11:20:43 Gastroes ophageal reflux disease 304487853 Active SANGITA Gibson, [facility] 11:22:29 Insomnia 112386852 Active SANGITA Gibson, [facility] 1 11:22:37 Endometr iosis (clinica l) 498151104 Active SANGITA Gibson, [facility] 1 11:26:56 COVID-19 038158694 Completed 201912/01/2021 Loren Olson MD [address] [facility] [address], [place], [address], [facility] 2 16:27:01 Prediabe geovany 389391246 Active 2021 Loren Olson MD [address] [facility] [address], [place], [address], [facility] 2 16:27:44 Mild chronic obstruct sandra pulmonar y disease 913311222 Active 2021 Loren Olson MD [address] [facility] [address], [place], [address], [facility] 2 09:17:30 Nodule of lung 389017489 Active 2022 CT at 6-12 months to confirm persisten ce (from 10/09/22), then CT every 2 years until 5 years follow-up per Guideline s for Managemen t of Incidenta l Pulmonary Nodules Detected on CT Images Loren Olson MD [address], [place], [address], [facility] 3 16:23:57 Body mass index 30+ - obesity 961035772 Active 2022 Loren Olson MD [address], [place], [address], [facility] 3 10:26:35 Osteopen ia 636719040 Active 2023 Loren Olson MD [address], [place], [address], [facility] 4 14:07:42 Problem Notes None recorded. Procedures Surgical History Date Name Laterality Status Provider Name and Address Organization Details Recorded Time 4 Most Recent Mammogram completed Fabiola Pisano MA [facility] 03/26/2024 13:30:00 3 Most Recent Bone Density completed Nita chung [place] [facility] 01/03/2023 10:04:45 3 Dxa bone density krysten vrt fx completed Nita chung [place] [facility] 01/03/2023 10:05:04 2 Mammogram screening completed Nita chung [place] [facility] 01/03/2023 10:04:56 9 Date of Last Pap Smear completed Nita chung [place] [facility] 06/29/2021 11:15:01 lumpectomy of right breast completed Nita chung [place] [facility] 06/29/2021 11:25:39 biopsy of breast completed Nita chung [place] [facility] 06/29/2021 11:25:56 Endometr ablate thermal completed Nita Hodges os, SANGITA [facility] 06/29/2021 11:26:45 Oral surgery procedure completed Nita chung, SANGITA [facility] 06/29/2021 11:27:11 Imaging Results None recorded. [...] Relief 50 mcg/actua tion nasal spray,marlyn [employer] [place] 1 spray every day by intranas al [...] Not Available Not Available Not Available Vitals None Recorded Social History Question Answer Notes LastModified by Organizat ion Details LastModified Time Tobacco Smoking Status Former Smoker Nita Prater [facility], [facility] 06/29/2021 11:03:35 Do You Have An Advance Directive? No Information not available 04/10/2022 Is Blood Transfusion [...] 06/29/2021 What Is Your Current Pack Years? 10-19packyea rs [email or web address] Information not available 04/10/2022 Do You Use [...] use any illicit or recreational drugs? No [email or web address] Information not available 04/10/2022 Do you or have you ever used any other forms of tobacco or nicotine? No [email or web address] Information not available 04/10/2022 What is your level of alcohol consumption? None Information not available 06/29/2021 Are you currently employed? Yes Information not available 06/29/2021 Are you able to walk independently without assistance or assistive devices? YESWOREST [email or web address] Information not available 04/10/2022 Are you able to care for yourself independently? 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 Moderate [facility] Information not available 03/27/2025 Mental Status None [...] available 06/29/2021 11:22:53 Medical History Condition Response Endometriosis Y High Cholesterol Y Acid Reflux (GERD) Y Osteoporosis Y Asthma Y Allergies Y Gynecological History Statement/Question Response Date of Last Pap Smear 02/21/2019 Date of Last Colonoscopy Most Recent Mammogram 03/10/2024 Most Recent Bone Density 01/03/2023 Obstetrics History GPAL:G 0 P 0 0 0 0 Immunizations Vaccine Type Date Status Note Provider Name and Address Organization Details Recorded Time Pneumococcal Conjugate, unspecified formulation 013 completed Ekaterina Anguiano null, [facility] 06/28/2021 15:44:15 Pneumococcal Conjugate, unspecified formulation 014 completed Ekaterina Anguiano null, [facility] 06/28/2021 15:44:19 Pneumococcal Conjugate, unspecified formulation 016 completed Ekaterina Anguiano null, [facility] 06/28/2021 15:44:32 Tdap 009 completed Ekaterina Anguiano null, [facility] 06/28/2021 15:44:43 COVID-19, mRNA, LNP-S, PF, 100 mcg/0.5mL dose or 50 mcg/0.25mL dose 021 completed Kimberlee Dunham [facility], [facility] 06/29/2021 10:44:06 COVID-19, mRNA, LNP-S, PF, 100 mcg/0.5mL dose or 50 mcg/0.25mL dose 021 completed Kimberlee Dunham [facility], [facility] 06/29/2021 10:44:23 COVID-19, mRNA, LNP-S, PF, 100 mcg/0.5mL dose or 50 mcg/0.25mL dose 021 completed Rayne Perez MA null, [facility] 12/30/2021 08:37:06 Tdap 021 completed Nita chung MA null, [facility] 04/10/2022 13:20:52 zoster recombinant 024 completed Fabiola Pisano MA null, [facility] 03/26/2024 13:17:04 zoster recombinant 024 completed Fabiola Pisano MA null, [facility] 03/26/2024 13:17:04 RSV, bivalent, protein subunit RSVpreF, diluent reconstituted, 0.5 mL, PF 024 completed SANGITA Knowles [facility] 03/26/2024 13:17:04 Pneumococcal conjugate PCV20, polysaccharide [id number] conjugate, adjuvant, PF 024 completed Not Available [facility] 06/17/2025 08:19:07 Influenza, split virus, quadrivalent, PF 021 cancelled patient objection Beatriz Dunham ortega [facility] 07/04/2021 12:19:32 Past Encounters Encounter ID Performer Location Encounter Start Date Encounter Closed Date Diagnosis/Indication Diagnosis SNOMED-CT Code Diagnosis ICD10 Code Diagnosis IMO Codes Diagnosis Note [id number] Loren Olson MD Main Office [address] [facility] [place] [address] 06/17/2025 08:17:50 06/17/2025 11:37:01 Carpal tunnel syndrome of left wrist [id number] 47825 G56.02 248264 -Diagnosti cs: Ordered EMG to confirm the [...] by Organization Details LastModified Time None Recorded Payers Encounter Date Sequence Insurance Name Policy Number Policy Finney Covered Member ID Finney Member ID Guarantor Name 06/17/2025 1 [employer] ([facility] [place]) [id number] Mor Schroeder [id number] Mor Schroeder Notes Date Note Type Note Provider Name and Address Organization Details Recorded Time 06/17/2025 text/html The patient presents for a [...] has been helpful in relieving her symptoms. Loren Olson MD [address] [address], [place], [address], [facility] 06/17/2025 09:04:51 OBGyn Episode No OBEpisode recorded.
== END 2025-07-29 09:55 | disposition home or self-care (01) ==
LOC: HO.NEURO 09:54
PROVIDERS: PCP Family Medicine; Visit Provider Family Medicine
DX: G56.02 Carpal tunnel syndrome, left upper limb (principal); R20.0 Anesthesia of skin; L29.9 Pruritus, unspecified; M79.622 Pain in left upper arm
CPT/HCPCS: 95886; 95910

== ENCOUNTER → 2025-07-29 10:17 | Outpatient (BNV) | payer OTHER, SELFPAY | PROVIDERS: PCP Family Medicine; Visit Provider Psychiatry & Neurology Neurology | DX: G56.02 Carpal tunnel syndrome, left upper limb (principal) | CPT/HCPCS: 95886; 95910 ==